=== PATIENT | male | born 1935 | race Caucasian/White ===

== ENCOUNTER → 2016-04-22 | Outpatient (CLI) | payer OTHER ==
[~2016-04-22] MED LIST: AMOX875T PO; ASPCH81; ASPI-435 PO; ATOR10TA88 PO; LISI-461 PO; TRAM-10 PO
[2016-04-22 12:56] LABS: BASO % 0.3 %; BASO ABS # 0.02 K/uL (0-0.2); COMPLETE YES; EOS % 1.4 %; HEMATOCRIT 44.5 % (42-52); IG% 0.3 %; LYMPH % 35.7 %; LYMPH ABS # 2.31 K/uL (1.2-3.4); MEAN CELL VOLUME 88.3 fL (80-100); MEAN CORPUSCULAR HEMOGLOBIN 30.2 pg (25-34); MEAN CORPUSCULAR HGB CONC 34.2 g/dl (32-36); MEAN PLATELET VOLUME 10.1 fL (7.4-10.4); MONO % 9.1 %; NEUT % 53.2 %; PLATELET COUNT 198 K/uL (130-400); RED BLOOD COUNT 5.04 M/uL (4.7-6.1); WHITE BLOOD COUNT 6.47 K/uL (4.8-10.8)
[2016-04-22 13:03] LABS: ALT/SGPT 24 U/L (12-78); BLOOD UREA NITROGEN 18 mg/dl (7-18); BUN/CREATININE RATIO 16.5 (10-20); CALCIUM 8.8 mg/dl (8.5-10.1); CARBON DIOXIDE 25 mmol/L (21-32); CHLORIDE 102 mmol/L (98-107); CHOLESTEROL 113 mg/dl (0-200); GLUCOSE 100 mg/dl (70-99); POTASSIUM 4.7 mmol/L (3.5-5.1); SODIUM 137 mmol/L (136-145)
[2016-04-22 13:06] LABS: ALB/GLOB RATIO 1.5 (0.9-2); ALKALINE PHOSPHATASE 109 U/L (45-117); AST/SGOT 18 U/L (15-37); CHOLESTEROL/HDL RATIO 2.3; HDL CHOLESTEROL 49 mg/dl; LDL CHOLESTEROL CALCULATED 45 mg/dl; TRIGLYCERIDES 96 mg/dl (0-150); VERY LOW DENSITY LIPOPROT CALC 19 mg/dl
[2016-04-22 13:17] LABS: ESTIMATED AVERAGE GLUCOSE 111 mg/dl; HA1C FLAG Normal (Normal)
== END | disposition home or self-care (01) ==
LOC: C.LABBFT 07:47
PROVIDERS: ATTEND Internal Medicine
DX: R73.09 Other abnormal glucose (principal)

== ENCOUNTER → 2016-05-04 | Outpatient (CLI) | payer OTHER ==
[~2016-05-04] MED LIST changes: +OPTIRAY 320 IV PRN; -TRAM-10 PO
--- NOTE | 2016-05-04 12:56 | DIAGNOSTIC IMAGING REPORT ---
ULTRASOUND OF THE THYROID GLAND CLINICAL HISTORY: Thyroid nodules. COMPARISON STUDY: Thyroid ultrasound dated 08/23/2012. TECHNIQUE: Real-time, grayscale, and color flow sonography of the thyroid gland is performed utilizing a high-frequency linear transducer. Images are reviewed in the transverse and longitudinal planes. FINDINGS: Right lobe: The right lobe of the thyroid gland is normal in size and homogeneous in echotexture, measuring 5.5 x 2.1 x 1.8 cm. A 4 mm hypoechoic nodule is noted in the upper pole. A 4 mm hypoechoic nodule is also seen in the lower pole. These were seen previously but or not discretely measured. Left lobe: The left lobe of the thyroid gland is top normal in size and homogeneous in echotexture, measuring 6.2 x 2.8 x 2.6 cm. A hypoechoic solid nodule in the lower pole measures 3.2 x 2.0 x 1.8 cm (previously measured 2.9 x 2.1 x 1.7 cm). A hypoechoic solid nodule in the anterior midpole measures 0.7 x 0.9 x 0.7 cm (previously measured 0.9 x 0.7 x 0.9 cm). Isthmus: The thyroid isthmus is normal in appearance and measures 0.4 cm in AP diameter. IMPRESSION: Bilateral thyroid nodules as above. These have not significantly changed in size or appearance from the 08/23/2012 examination. Electronically signed by: José Luis Dyer M.D. 05/04/2016 12:55 PM Dictated Date/Time: 05/04/2016 12:52 PM
--- NOTE | 2016-05-04 13:11 | DIAGNOSTIC IMAGING REPORT ---
CT OF THE CHEST WITH IV CONTRAST CLINICAL HISTORY: R91.1 Pulmonary [id number] COMPARISON STUDY: CT scan of the abdomen pelvis dated 10/29/2015 TECHNIQUE: Following the IV administration of 93 mL of Optiray-320, CT of the thorax was performed from the thoracic inlet to the lung bases. Images are reviewed in the axial, sagittal, and coronal planes. IV contrast was administered without complication. CT DOSE: 487.73 mGy.cm FINDINGS: Thyroid: Is a 14 mm left lobe thyroid nodule. Thoracic aorta: The thoracic aorta is normal in course and caliber, noting standard 3-vessel arch anatomy. No aneurysm or dissection is seen. Pulmonary vasculature: The pulmonary trunk is normal in caliber. There are no central filling defects identified to suggest pulmonary embolus. Note that this examination was not protocoled for the evaluation of pulmonary emboli. HEART: The heart is normal in size. There are coronary artery calcifications present. Lungs and pleural spaces: There is pulmonary emphysema. There is an enlarging irregularly marginated solid 17 mm right upper lobe pulmonary nodule, is suspicious for a carcinoma. There is a low suspicion 4 mm right lower lobe perifissural nodule. This remains unchanged. There is a calcified granuloma within the right lung apex. There is a 5 mm pulmonary nodule within the lingula as visualized in image #[id number]. This remains unchanged Mediastinum: There is no pathologic mediastinal adenopathy by size criteria Sylvia: There is a right superior hilar lymph node the upper limits of normal in diameter. Axilla: Clear. Upper abdomen: There is a stable 14 mm left adrenal nodule, likely representing an adenoma. There is cholelithiasis. There is a left renal cyst. Skeletal structures: There are no lytic or blastic osseous lesions. IMPRESSION: 1. Enlarging solid 17 mm right upper lobe pulmonary nodule. This should be presumed to represent a bronchogenic carcinoma unless proven otherwise. Pulmonary consultation is recommended 2. No evidence of pathologic adenopathy by size criteria Electronically signed by: Massimo Powell M.D. 05/04/2016 1:10 PM Dictated Date/Time: 05/04/2016 1:01 PM
== END | disposition home or self-care (01) ==
LOC: C.ULTR 12:00
PROVIDERS: ATTEND Internal Medicine
DX: R91.1 Solitary pulmonary nodule (principal); E04.1 Nontoxic single thyroid nodule

== ENCOUNTER → 2016-05-29 | Outpatient (CLI) | payer OTHER ==
[~2016-05-29] MED LIST changes: -OPTIRAY 320 IV PRN
[2016-05-29 16:42] LABS: ARTERIAL BLOOD GAS BASE EXCESS 1.5 mEq/L (-9-1.8); ARTERIAL BLOOD GAS HCO3 25 mmol/L (19-24); ARTERIAL BLOOD GAS PO2 79 mm/Hg (80-95); ARTERIAL BLOOD GAS pH 7.45 (7.35-7.45)
[2016-05-29 16:43] LABS: ALLEN TEST POS (POS); O2 ADMINISTRATION ROOM AIR
== END | disposition home or self-care (01) ==
LOC: C.LAB 16:10
PROVIDERS: ATTEND Internal Medicine Pulmonary Disease
DX: R91.1 Solitary pulmonary nodule (principal)

== ENCOUNTER → 2016-06-08 | Outpatient (CLI) | payer OTHER ==
[~2016-06-08] MED LIST changes: +ATOR10TA82 PO; -ATOR10TA88 PO
--- NOTE | 2016-06-08 10:40 | DIAGNOSTIC IMAGING REPORT ---
PET/CT HISTORY: Lung nodule PULM NODULE TECHNIQUE: PET/CT was performed from the base of the skull through the pelvis following the intravenous administration of 15.4 mCi of F18-FDG. Non-contrast CT imaging was performed over the same range without breath-hold for attenuation correction of PET images and anatomic correlation, but not for primary interpretation as it is not of standard diagnostic quality. CT DOSE: 599.33 mGycm COMPARISON: CT chest 05/04/2016 FINDINGS: HEAD AND NECK: There is a mild increase in activity without anatomic correlate right focal cord with an SUV of 4.8. This may be secondary in part due to patient phonating during the exam. CHEST: 17 mm nodule right upper lobe having considerable increase in SUV to approximately 11. Neoplasm is the diagnosis of exclusion read Unremarkable physiologic activity within the myocardium. No additional metabolically active nodules are identified. The 4 mm nodule within the right lower lobe is unchanged. ABDOMEN/PELVIS: Below the diaphragm, tracer is distributed physiologically in the gastrointestinal and genitourinary tracts. There is no significant lymphadenopathy and no FDG-avid disease. MUSCULOSKELETAL: There is no FDG-avid or destructive bone lesion. IMPRESSION: 1. 17 mm nodule right upper lung showing a significant increase in metabolic activity. 2. A neoplastic nodule is the diagnosis of exclusion. 3. This study is otherwise negative Electronically signed by: John Marion M.D. 06/08/2016 10:38 AM Dictated Date/Time: 06/08/2016 10:31 AM
== END | disposition home or self-care (01) ==
LOC: C.PET 07:30
PROVIDERS: ATTEND Internal Medicine Pulmonary Disease
DX: R91.1 Solitary pulmonary nodule (principal)

== ENCOUNTER 2016-07-14 06:11 | Inpatient (IN) | payer OTHER ==
--- NOTE | 2016-07-02 09:41 | PAT Medication Instructions ---
Service Date Jul 02, 2016. Current Home Medication List Aspirin (Aspirin 81), 81 MG PO QAM Atorvastatin (Lipitor), 10 MG PO HS Lisinopril (Zestril), 10 MG PO QAM Medication Instructions For Your Scheduled Surgery - Hold the following medications the morning of surgery: Lisinopril (Zestril), 10 MG PO QAM - Take the following medications the morning of surgery with a sip of water OTHERWISE NOTHING TO EAT OR DRINK AFTER MIDNIGHT: Aspirin (Aspirin 81), 81 MG PO QAM - Take the following medications as scheduled the night before surgery: Atorvastatin (Lipitor), 10 MG PO HS If you have any questions please call us at [phone] or [phone] or [phone]
[2016-07-02 10:36] LABS: BASO % 0.2 %; BASO ABS # 0.01 K/uL (0-0.2); COMPLETE YES; EOS % 0.9 %; HEMATOCRIT 46.2 % (42-52); IG% 0.2 %; LYMPH % 27.9 %; LYMPH ABS # 1.58 K/uL (1.2-3.4); MEAN CELL VOLUME 90.9 fL (80-100); MEAN CORPUSCULAR HEMOGLOBIN 30.5 pg (25-34); MEAN CORPUSCULAR HGB CONC 33.5 g/dl (32-36); MEAN PLATELET VOLUME 9.7 fL (7.4-10.4); MONO % 8.1 %; NEUT % 62.7 %; PLATELET COUNT 169 K/uL (130-400); RED BLOOD COUNT 5.08 M/uL (4.7-6.1); WHITE BLOOD COUNT 5.67 K/uL (4.8-10.8)
[2016-07-02 10:56] LABS: POTASSIUM 5.2 mmol/L (3.5-5.1)
[2016-07-02 11:00] LABS: CALCIUM 9.6 mg/dl (8.5-10.1)
[~2016-07-14] VITALS: Ht 177.8 cm; Wt 99.5 kg
[2016-07-14] VITALS (14 sets, daily range): BP systolic 90–135; BP diastolic 47–82; PULSE 79–109; TEMP 36.4–36.5; O2SAT 91–98; Ht 177.8 cm; Wt 99.5 kg
[~2016-07-14 06:11] MED LIST changes: -AMOX875T PO; -ASPCH81; +LACTATED RINGER'S 1000ML 1,000 ML IV SCH
[2016-07-14] MEDS ORDERED: EpHEDrine SULFATE INJ 50 MG/ML AMP IV PRN (06:45)
[2016-07-14] MEDS ORDERED: ATROPINE SULFATE 0.1 MG/ML 5ML SYR IV PRN (06:45)
[2016-07-14] MEDS ORDERED: ONDANSETRON INJ 2 MG/ML 2 ML VIAL IV PRN ×2 (06:45→12:30)
[2016-07-14] MEDS ORDERED: FENTANYL CITRATE INJ 50 MCG/1 ML 2 ML VIAL IV PRN (06:45)
[2016-07-14] MEDS ORDERED: FENTANYL CITRATE INJ 50 MCG/1 ML 2 ML VIAL ONE ×3 (07:08→11:39)
[2016-07-14] MEDS ORDERED: BUPIVACAINE LIPOSOME 1/3% 266 MG/20 ML VIAL INFIL ONE (07:14)
[2016-07-14] MEDS ORDERED: SODIUM CHLORIDE 0.9% PF 50 ML VIAL ONE (07:14)
--- NOTE | 2016-07-14 08:13 | History & Physical Bridge Note ---
H&P Re-Evaluation Bridge Note: I have examined the patient, reviewed the History & Physical and in the interval since the performance of the History & Physical I have noted the following changes of clinical significance: No changes noted
[2016-07-14] MEDS ORDERED: LIDOCAINE HCL 2% 2 ML VIAL (20MG/ML) ONE (09:06)
[2016-07-14] MEDS ORDERED: ROCURONIUM BROMIDE 10 MG/ML 5 ML VIAL ONE ×2 (09:06→10:32)
[2016-07-14] MEDS ORDERED: DEXAMETHASONE SOD INJ 4 MG/ML VIAL ONE (09:06)
[2016-07-14] MEDS ORDERED: ONDANSETRON INJ 2 MG/ML 2 ML VIAL ONE ×2 (09:06→12:03)
[2016-07-14] MEDS ORDERED: PROPOFOL IV EMULSION 10 MG/ML 20 ML VIAL IV ONE (09:06)
[2016-07-14] MEDS ORDERED: NEOSTIGMINE METHYLSULFATE 5 MG/5 ML SYR ONE ×2 (10:32→12:03)
[2016-07-14] MEDS ORDERED: GLYCOPYRROLATE INJ 0.2 MG/ML VIAL ONE (12:03)
[2016-07-14] MEDS ORDERED: MoRPHine SULFATE 2 MG/ML CARP IV PRN (12:30)
[2016-07-14] MEDS ORDERED: OXYCODONE HCL IR 5 MG TAB (IMMEDIATE RELEASE) PO PRN (12:30)
--- NOTE | 2016-07-14 13:15 | DIAGNOSTIC IMAGING REPORT ---
CHEST ONE VIEW PORTABLE CLINICAL HISTORY: RUL postoperative evaluation COMPARISON STUDY: No previous studies for comparison. FINDINGS: Postoperative change right hemithorax consistent with a partial right upper lobectomy. Right-sided chest tube in good position. No evidence for postprocedure pneumothorax. Extensive emphysema overlying the lateral hemithoracic wall the right components of which are postoperative. IMPRESSION: No pneumothorax status post right-sided thoracotomy. Right-sided chest tube in good position. Electronically signed by: John Marion M.D. 07/14/2016 1:14 PM Dictated Date/Time: 07/14/2016 1:12 PM
--- NOTE | 2016-07-14 13:31 | Anesthesiology Progress Note ---
Anesthesia Post Op Note Date & Time July 14, 2016 at 13:31 Vital Signs Pain Intensity: 0 Vital Signs Past 12 Hours Date Time Temp Pulse Resp B/P Pulse Ox O2 Delivery O2 Flow Rate FiO2 07/14/16 13:18 86 21 07/14/16 13:18 87 21 99 07/14/16 13:18 87 21 99 07/14/16 13:18 86 21 07/14/16 13:15 143/82 07/14/16 13:15 143/82 07/14/16 13:13 82 15 07/14/16 13:13 86 15 94 07/14/16 13:13 82 15 07/14/16 13:13 86 15 94 07/14/16 13:05 84 20 138/69 98 Mask 10 07/14/16 12:55 79 15 130/88 98 Mask 10 07/14/16 12:45 74 19 124/55 92 Mask 10 07/14/16 12:38 36.0 67 16 119/67 97 Mask 10 07/14/16 06:42 36.4 84 18 135/82 98 Room Air Notes Mental Status: alert / awake / arousable, participated in evaluation Pt Amnestic to Procedure: Yes Nausea / Vomiting: adequately controlled Pain: adequately controlled Airway Patency, RR, SpO2: stable & adequate BP & HR: stable & adequate Hydration State: stable & adequate Anesthetic Complications: no major complications apparent
[2016-07-14] MEDS: CEFAZOLIN IV 2,000 MG in DEXTROSE 5% 50ML 100 ML IV SCH ×2 (15:29→21:13)
[2016-07-14] MEDS: D5W AND 1/2NSS 1,000 ML IV SCH (15:29)
[2016-07-14] MEDS: KETOROLAC TROMETHAMINE 15 MG/ML VIAL IV. SCH ×2 (15:30→23:04)
[2016-07-14] MEDS: METOCLOPRAMIDE HCL INJ 5 MG/ML 2 ML VIAL IV. SCH ×2 (15:30→21:14)
[2016-07-14] MEDS: ACETAMINOPHEN IV 1,000 MG in EMPTY BAG 0 ML IV SCH ×2 (15:30→23:13)
[2016-07-14] MEDS ORDERED: NURSING VERBAL MED ORDER ONE (16:45)
[2016-07-14] MEDS: MAGNESIUM SULFATE 1GM / D5W 1 GM in PREMIXED IN D5W 100 ML IV SCH ×2 (17:32→18:30)
[2016-07-14] MEDS: DOCUSATE SODIUM 100 MG CAP PO SCH (21:12)
[2016-07-14] MEDS: ATORVASTATIN 10 MG TAB PO SCH (21:12)
--- NOTE | 2016-07-14 21:39 | Critical Care Consultation ---
Critical Care Consultation Date of Consultation: July 14, 2016. Attending Physician: Karl Arevalo MD Reason for Consultation: Post Op Care for Right Upper Lobectomy History of Present Illness Mike Espino is an 81-year-old male who presented for elective right wedge resection of lung mass converted to right upper lobectomy with mediastinal lymphadenectomy secondary to a known pulmonary nodule by Dr. Arevalo. Patient was known to smoke a pack of cigarettes a day for about 25 years but quit approximately 47 years ago. He does not complain of dyspnea on exertion. At this point it was believed that the patient was asymptomatic from this mass. The mass had been evaluated by Dr. chavez. Recently it had measured 9 mm x 17 mm and was hypermetabolic. Patient was extubated in the OR. A chest tube to the right thorax is in place with a noted air leak. Frozen sections demonstrated adenocarcinoma. Patient underwent Exparel Block and denies any pain at the site of incision or elsewhere currently. Patient denies fever/chills, dyspnea/shortness of breath, cough. He denies chest pain or awareness of tachyarrhythmias. He states he has had no issue with his diet; denies abdominal pain, nausea, vomiting. He has no change in his normal bowel habits and no urinary symptoms. He denies numbness and tingling of the extremities. 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 Thyroid disorder Thyroid nodule Pulmonary embolism Umbilical hernia Surgical history: History of colonoscopy Hemorrhoidectomy Right upper lobectomy Family History Cancer Diabetes mellitus Heart disease Hypertension Noncontributory Social History Smoking Status: Former Smoker Smokeless Tobacco Use: No Alcohol Use: none Drug Use: none Marital Status: Housing Status: lives with family Occupation Status: retired Allergies Coded Allergies: No Known Allergies (Verified , 07/14/16) Home Medications Scheduled Aspirin (Aspirin 81), 81 MG PO QAM Atorvastatin (Lipitor), 10 MG PO HS Lisinopril (Zestril), 10 MG PO QAM Current Inpatient Medications Current Inpatient Medications Medications (Trade) Dose Ordered Sig/[place] Route Start Time Stop Time Status Last Admin Dose Admin Lactated Ringer's (Lr 1000ml) 1,000 ml @ 15 mls/hr Q24H IV 07/14/16 06:00 07/15/16 05:59 Aspirin (Ecotrin Tab) 81 mg QAM PO 07/15/16 09:00 08/14/16 08:59 Atorvastatin Calcium (Lipitor Tab) 10 mg HS PO 07/14/16 21:00 08/13/16 20:59 07/14/16 21:12 10 MG Lisinopril 10 mg 10 mg QAM PO 07/15/16 09:00 08/14/16 08:59 Acetaminophen/ Empty Bag (Ofirmev Iv/ Empty Iv Bag 100ml) 100 ml @ 400 mls/hr Q8H IV 07/14/16 16:00 08/13/16 15:59 07/14/16 15:30 400 MLS/HR Oxycodone HCl (Roxicodone Immediate Rel Tab) 5 mg Q6H PRN PO 07/14/16 12:30 07/28/16 12:29 Enoxaparin Sodium 40 mg 40 mg DAILY SQ 07/15/16 09:00 08/14/16 08:59 Dextrose/Sodium Chloride (D5W And 1/2nss) 1,000 ml @ 100 mls/hr Q10H IV 07/14/16 12:21 08/13/16 12:20 07/14/16 15:29 100 MLS/HR Ondansetron HCl (Zofran Inj) 4 mg Q4H PRN IV 07/14/16 12:30 08/13/16 12:29 Docusate Sodium 100 mg 100 mg BID PO 07/14/16 21:00 08/13/16 20:59 07/14/16 21:12 100 MG Cefazolin Sodium/ Dextrose (Ancef Iv/D5 50ml) 110 ml @ 100 mls/hr Q8H IV 07/14/16 14:00 07/14/16 23:05 07/14/16 21:13 100 MLS/HR Ketorolac Tromethamine (Toradol Inj) 15 mg Q8H IV. 07/14/16 15:00 07/16/16 07:01 07/14/16 15:30 15 MG Metoclopramide HCl (Reglan Inj) 10 mg Q8 IV. 07/14/16 14:00 07/15/16 13:59 07/14/16 21:14 10 MG Morphine Sulfate (MoRPHine SULFATE INJ) 2 mg Q1H PRN IV 07/14/16 12:30 07/28/16 12:29 Review of Systems 12 systems reviewed and negative other than previously mentioned in the HPI. Physical Exam Date Time Temp Pulse Resp B/P Pulse Ox O2 Delivery O2 Flow Rate FiO2 07/14/16 20:00 36.5 88 20 95/58 94 Room Air 99/47 07/14/16 20:00 94 Room Air 07/14/16 19:01 95 18 105/59 95 07/14/16 19:00 90 19 95 07/14/16 18:00 99 21 91/61 91 Room Air 108/50 07/14/16 17:00 109 21 96/64 93 Room Air 105/51 07/14/16 16:00 Nasal Cannula 2.0 07/14/16 16:00 101 23 122/71 94 Nasal Cannula 2.0 127/61 07/14/16 15:00 101 20 128/81 96 Nasal Cannula 2.0 132/64 07/14/16 14:06 97 25 111/73 95 Nasal Cannula 2.0 07/14/16 14:00 36.4 88 24 07/14/16 13:50 125/68 07/14/16 13:49 95 22 96 07/14/16 13:49 95 22 07/14/16 13:45 125/73 07/14/16 13:44 88 18 95 07/14/16 13:44 88 18 07/14/16 13:40 125/69 07/14/16 13:39 88 16 07/14/16 13:39 86 16 97 07/14/16 13:35 131/79 07/14/16 13:34 91 18 07/14/16 13:34 90 18 96 07/14/16 13:31 132/70 07/14/16 13:29 91 28 07/14/16 13:29 93 28 97 07/14/16 13:26 36.5 93 20 131/79 99 Nasal Cannula 2 07/14/16 13:25 140/79 07/14/16 13:24 88 19 07/14/16 13:24 88 19 100 07/14/16 13:21 124/74 07/14/16 13:19 85 19 100 07/14/16 13:19 85 19 07/14/16 13:18 86 21 07/14/16 13:18 87 21 99 07/14/16 13:18 87 21 99 07/14/16 13:18 86 21 07/14/16 13:15 143/82 07/14/16 13:15 143/82 07/14/16 13:13 82 15 07/14/16 13:13 86 15 94 07/14/16 13:13 82 15 07/14/16 13:13 86 15 94 07/14/16 13:05 84 20 138/69 98 Mask 10 07/14/16 12:55 79 15 130/88 98 Mask 10 07/14/16 12:45 74 19 124/55 92 Mask 10 07/14/16 12:38 36.0 67 16 119/67 97 Mask 10 07/14/16 06:42 36.4 84 18 135/82 98 Room Air Vital Signs - as noted Laboratory Data - as noted Physical Exam: General - NAD Eyes - PERRL, EOMI No icterus, gaze conjugate ENT - Mucosa moist, upper dentures in place, no lesions or candidiasis Neck - Supple, trachea midline, no masses or lymphadenopathy, no JVD or bruits Lungs - No paradoxical chest wall movement, coarse to auscultation bilaterally, no wheezes, rales, or rhonchi, no subcutaneous emphysema noted, chest tube in place Heart - Reg rate and rhythm, No murmur, rubs, clicks, or gallops appreciated Abdomen - BS present, no bruits noted, tympanic to percussion, soft, nontender, nondistended, no organomegaly Extremities - No edema, pedal pulses intact Neuro - A&OX4 Strength extremities equal and appropriate bilaterally Reflexes: normal and equal CN:PERRL, EOMI, no facial asymmetry, uvula/tongue midline Laboratory Results Last 24 Hours Test 07/14/16 06:34 07/14/16 15:39 Bedside Glucose 98 mg/dl 152 mg/dl Diagnostic Results CHEST ONE VIEW PORTABLE CLINICAL HISTORY: RUL postoperative evaluation COMPARISON STUDY: No previous studies for comparison. FINDINGS: Postoperative change right hemithorax consistent with a partial right upper lobectomy. Right-sided chest tube in good position. No evidence for postprocedure pneumothorax. Extensive emphysema overlying the lateral hemithoracic wall the right components of which are postoperative. IMPRESSION: No pneumothorax status post right-sided thoracotomy. Right-sided chest tube in good position. Electronically signed by: John Marion M.D. 07/14/2016 1:14 PM Dictated Date/Time: 07/14/2016 1:12 PM Assessment & Plan (1) Lung cancer (2) Hypercholesteremia (3) Hypertension Pulmonary: * Postop day # 0 right upper lobectomy secondary to adenocarcinoma with mediastinal lymphadenectomy * Pain well controlled * Patient saturating adequately on room air * Provide supplemental oxygen as needed * Monitor on telemetry * Postop management/ Chest Tube per Dr. Arevalo * Repeat chest x-ray Cardiology: * Monitor closely for arrhythmia secondary to thoracic surgery * Monitor on telemetry * EKG as needed with chest pain * Continue home meds for hypertension and hypercholesterolemia Neuro: * No focal neurological signs * Pain well controlled * Monitor for changes / Electrolytes: * Potassium slightly elevated at 5.2; continue to monitor * Remaining PRP within normal limits * Patient voiding, no Proctor in place * Monitor I's and O's * Monitor daily PRP GI: * Diet in place * No indication for GI prophylaxis Heme: * Monitor daily CBC * Currently within normal limits ID: * No current sign of infection * Monitor fever curve and white blood cell count * Patient at risk for postoperative pneumonia * Encourage continued use of incentive spirometer Access: [address] CCT: 0 minutes; Level 3 inpatient Consult billing; Not including any billable procedures. Thank you for including us in the care of this patient. Please review Dr. Chase Joshi's addendum for further recommendations. I have personally evaluated and examined this patient. I agree with assessment and plan of Krystin Tomas PA-C. Patient extubated in the operating room, during my evaluation U Zoe eat dinner and was without complaint. He has a air leak with coughing. Discussed with thoracic surgery team
[2016-07-15] VITALS (11 sets, daily range): BP systolic 84–114; BP diastolic 40–65; PULSE 59–83; TEMP 36.5–37.1; O2SAT 94–98
--- NOTE | 2016-07-15 00:10 | OPERATIVE REPORT ---
DATE OF OPERATION: 07/14/2016 PREOPERATIVE DIAGNOSIS: Hypermetabolic mass, right upper lobe. POSTOPERATIVE DIAGNOSIS: Adenocarcinoma, right upper lobe. PROCEDURE: 1. Right thoracoscopy with wedge resection right upper lobe mass. 2. Thoracoscopic right upper lobectomy. 3. Mediastinal lymphadenectomy. SURGEON: Dr. Arevalo. CHAINSTITCH SEWING MACHINE OPERATOR: TAVO Bell. ANESTHESIA: General anesthesia with endotracheal intubation with a double-lumen tube. SPECIFICS OF PROCEDURE: Mr. Espino is a remarkably preserved 81-year-old male who has had a mass growing in his right upper lobe. It is hypermetabolic. There is no evidence of extrathoracic spread. I had a long talk with the patient and his family. On 07/14/2016, the patient was brought to the operating room and underwent an uncomplicated thoracoscopic wedge resection. I did have to take down some adhesions. I did a wedge resection, and while waiting for the frozen section, I did an Exparel block and then dissected out the posterior hilum. The frozen section came back as consistent with an adenocarcinoma. There was some necrosis in the mid portion of this, I sent this off for culture, and there were no organisms seen on the Gram stain. I then performed a thoracoscopic right upper lobectomy, did a mediastinal lymphadenectomy. He tolerated it well and was extubated in the room with a small air leak. Blood loss was negligible. PROCEDURE IN DETAIL: The patient was brought to operating room and laid in supine position. Appropriate monitoring lines and tubes had been placed. After appropriate timeout had been called and antibiotics given, the patient was intubated with a double-lumen tube. The patient was then placed in the left lateral decubitus position, his right chest was prepped and draped in the usual sterile fashion. One-lung ventilation then ensued. A 5 mm port was placed and carbon dioxide was insufflated. The patient had adhesions on the lateral chest wall and another port was placed more medial at about the 7th interspace and at about the 4th interspace another port was placed. I then used the Harmonic scalpel to take down these adhesions. I also the adhesions between the upper lobe and the middle lobe and lower lobe. I then was able to palpate this mass. This mass was grasped and I did a generous wedge resection. This was delivered off the field with an Endobag. I opened this at the back table and there was liquification in the center which I cultured. This was then sent for frozen section. While waiting for the frozen section, 266 mg of liposomal bupicaine mixed in 60 mL of normal saline was injected from the 2nd to the 11th rib in an intercostal block under thoracoscopic guidance. I then retracted the lung anteriorly and freed up the posterior pleura up to the right mainstem bronchus. A level 7 node was then dissected away. I then brought this dissection down and dissected out the right upper lobe bronchus. Frozen section came back as being positive for an adenocarcinoma, so we proceeded with resection. I completed for the posterior aspect of the oblique fissure with an Endo-ASHISH stapler. I was then able to identify the posterior ascending artery and fired Endo-ASHISH stapler across this. With this, I was able to visualize the artery nicely and I dissected around the right upper lobe bronchus and Endo-ASHISH stapler was fired. This allowed me to retract this up until I could see the truncus arteriosus and another Endo-ASHISH stapler was fired. I then retracted the lung posteriorly along the anterior mediastinal pleura and dissected out the upper lobe vein and it from the middle lobe vein and fired an Endo-ASHISH stapler across this. I then completed the fissure anteriorly. A large Endobag was used to deliver this off the field. I asked for frozen section to be done on the margins. While waiting for this, I dissected up the inferior pulmonary ligament. I really did not see a level 8 or level 9 node. I did dissect out several #10 nodes both posterior and anteriorly as well as 11 and 12 nodes. I then dissected out the pleura above the azygos vein and dissected out a #2 and a #4 node on the right. There was very little in the way of bleeding. We did see a leak after we closed the chest and applied the suction. It was a larger leak than I would like and I went in and this was an area we were taking down adhesions of the lower lobe to the chest wall and required an Endo-ASHISH stapler across this. This controlled much of the leak, although he was still having a small one. A 24-Israeli chest tube was then directed toward the apex of the anteroinferior thoracoscopy port and sutured in place with heavy silk suture. The muscle layers were closed with 0 Vicryl. 4-0 Monocryl was used in running subcuticular fashion to approximate the wound edges. He tolerated it well and was extubated in the room. I attest to the content of the Intraoperative Record and any orders documented therein. Any exceptions are noted below. ZOHAIB
[2016-07-15] MEDS: D5W AND 1/2NSS 1,000 ML IV SCH ×2 (00:37→07:39)
[2016-07-15 06:00] LABS: BASO % 0.1 %; BASO ABS # 0.01 K/uL (0-0.2); COMPLETE YES; EOS % 0.6 %; HEMATOCRIT 31.5 % (42-52); IG% 0.3 %; LYMPH % 17.7 %; LYMPH ABS # 1.28 K/uL (1.2-3.4); MEAN CELL VOLUME 90.5 fL (80-100); MEAN CORPUSCULAR HGB CONC 34.3 g/dl (32-36); MEAN PLATELET VOLUME 9.5 fL (7.4-10.4); NEUT % 72.3 %; PLATELET COUNT 142 K/uL (130-400); RED BLOOD COUNT 3.48 M/uL (4.7-6.1); WHITE BLOOD COUNT 7.24 K/uL (4.8-10.8)
[2016-07-15] MEDS: KETOROLAC TROMETHAMINE 15 MG/ML VIAL IV. SCH ×3 (06:07→22:35)
[2016-07-15] MEDS: METOCLOPRAMIDE HCL INJ 5 MG/ML 2 ML VIAL IV. SCH (06:08)
[2016-07-15 06:10] LABS: INR 1.1 (0.9-1.1)
[2016-07-15 06:40] LABS: BUN/CREATININE RATIO 20.8 (10-20); CALCIUM 7.3 mg/dl (8.5-10.1); CREATININE 1.1 mg/dl (0.60-1.40); MAGNESIUM 2.4 mg/dl (1.8-2.4); PHOSPHORUS 2.3 mg/dl (2.5-4.9); POTASSIUM 4.1 mmol/L (3.5-5.1)
[2016-07-15] MEDS: ACETAMINOPHEN IV 1,000 MG in EMPTY BAG 0 ML IV SCH (07:39)
[2016-07-15] MEDS: LISINOPRIL 10 MG TAB PO SCH (07:40)
[2016-07-15] MEDS: ENOXAPARIN 40 MG/0.4 ML SYR SQ SCH (07:40)
[2016-07-15] MEDS: DOCUSATE SODIUM 100 MG CAP PO SCH ×2 (07:40→20:46)
[2016-07-15] MEDS: ASPIRIN 81 MG ECTAB PO SCH (07:40)
--- NOTE | 2016-07-15 08:05 | Anesthesiology Progress Note ---
Anesthesia Post Op Note Date & Time July 15, 2016 at 08:05 Vital Signs Pain Intensity: 0.0 Vital Signs Past 12 Hours Date Time Temp Pulse Resp B/P Pulse Ox O2 Delivery O2 Flow Rate FiO2 07/15/16 08:00 37.0 71 20 91/50 96 Room Air 101/56 07/15/16 06:00 62 21 97/57 96 Room Air 07/15/16 04:00 94 Room Air 07/15/16 04:00 36.8 59 19 108/57 95 Room Air 92/58 07/15/16 02:00 67 18 103/58 95 Room Air 91/43 07/15/16 01:00 70 19 88/58 94 84/40 07/15/16 00:01 36.8 83 20 103/61 94 Room Air 107/57 07/14/16 23:59 94 Room Air 07/14/16 23:06 79 19 97/58 95 Nasal Cannula 2.0 94/53 07/14/16 22:03 86 21 103/63 95 Nasal Cannula 2.0 101/50 07/14/16 21:00 87 20 90/56 92 93/56 07/14/16 21:00 87 20 90/56 92 93/56 Notes Mental Status: alert / awake / arousable, participated in evaluation Pt Amnestic to Procedure: Yes Nausea / Vomiting: adequately controlled Pain: adequately controlled Airway Patency, RR, SpO2: stable & adequate BP & HR: stable & adequate Hydration State: stable & adequate Anesthetic Complications: no major complications apparent
--- NOTE | 2016-07-15 08:21 | DIAGNOSTIC IMAGING REPORT ---
CHEST ONE VIEW PORTABLE HISTORY: Right upper lobectomy. Postop. COMPARISON: Chest 07/14/2016. FINDINGS: There is now medial displacement of the right-sided chest tube. There is been interval development of a moderate to large right pneumothorax demonstrating an apical pleural gap of 4 cm. Hazy appearance the right lung base has progressed and may represent atelectasis. There are suture material within the right hilum. There are low lung volumes. Right-sided chest wall subcutaneous emphysema is again noted. No mediastinal shift. The heart is stable in size. Old, healed left-sided rib fractures. IMPRESSION: Medial displacement of the right-sided chest tube which appears to be due to interval development of a moderate to large right pneumothorax. Electronically signed by: Michael Park M.D. 07/15/2016 8:20 AM Dictated Date/Time: 07/15/2016 8:12 AM
--- NOTE | 2016-07-15 12:56 | SURGERY PROGRESS NOTE ---
DATE: 07/15/2016 Mr. Espino is an 81-year-old who underwent a thoracoscopic right upper lobectomy mediastinal lymphadenectomy yesterday for a nonsmall cell lung carcinoma. He did very well with this. He does have a small air leak and he has a small pneumothorax on his chest x-ray on [facility] this morning. But, quite frankly he looks very good. He is eating a regular diet. He has very little in the way of pain. He has drained very little from his chest tube. I am not concerned about his x-ray. The air leak is small and should stop. We are going to move him to a regular room as he has had no arrhythmias. We removed all of his monitoring lines and tubes except for his chest tube. We will push him to ambulate. He has done remarkably well for an 81-year-old man. ZOHAIB
[2016-07-15] MEDS: ACETAMINOPHEN 325 MG TAB PO SCH ×2 (14:03→20:46)
[2016-07-15] MEDS: ATORVASTATIN 10 MG TAB PO SCH (20:46)
[2016-07-16] VITALS (7 sets, daily range): BP systolic 102–125; BP diastolic 65–78; PULSE 62–89; TEMP 36.4–37.1; O2SAT 95–98
[2016-07-16] MEDS: ACETAMINOPHEN 325 MG TAB PO SCH ×4 (01:36→19:40)
[2016-07-16] MEDS: KETOROLAC TROMETHAMINE 15 MG/ML VIAL IV. SCH (06:30)
[2016-07-16] MEDS: DOCUSATE SODIUM 100 MG CAP PO SCH ×2 (08:39→20:32)
[2016-07-16] MEDS: ENOXAPARIN 40 MG/0.4 ML SYR SQ SCH (08:39)
[2016-07-16] MEDS: ASPIRIN 81 MG ECTAB PO SCH (08:39)
[2016-07-16] MEDS: LISINOPRIL 10 MG TAB PO SCH (08:40)
--- NOTE | 2016-07-16 13:08 | DIAGNOSTIC IMAGING REPORT ---
CHEST ONE VIEW PORTABLE CLINICAL HISTORY: RUL pain COMPARISON STUDY: 07/15/2016 FINDINGS: Interval decrease in size of right pneumothorax. There is no interval and minimal residual. Subcutaneous emphysematous changes similar area left lung remains clear. IMPRESSION: Improved exam. No significant residual right-sided pneumothorax. Electronically signed by: John Marion M.D. 07/16/2016 1:07 PM Dictated Date/Time: 07/16/2016 1:03 PM
--- NOTE | 2016-07-16 13:40 | SURGERY PROGRESS NOTE ---
DATE: 07/16/2016 DATE: 07/16/2016. SUBJECTIVE: Mr. Espino is an 81-year-old male who underwent a thoracoscopic right upper lobectomy and mediastinal lymphadenectomy 2 days ago and looks very good. He is on room air. He is ambulating in the hallway. He is eating well. His only problem is he does have a small air leak. He has not drained very much fluid from his chest tube, total 160 yesterday, but his air leak is not large, but is concerning enough that we will have to keep his chest tube in for the time being. I explained this very carefully to him. His pathology is not back yet. ASSESSMENT AND PLAN: Postop day #2, status post thorascopic right upper lobectomy and mediastinal lymphadenectomy. The patient looks quite good. We are going to hopefully get this chest tube out when his air leak stops.
[2016-07-16] MEDS: ATORVASTATIN 10 MG TAB PO SCH (20:32)
[2016-07-17] MEDS: ACETAMINOPHEN 325 MG TAB PO SCH ×4 (01:39→20:50)
[2016-07-17 07:02] VITALS: BP 128/92; PULSE 77; TEMP 37; O2SAT 94
[2016-07-17 08:59] VITALS: BP 125/80
[2016-07-17] MEDS: ENOXAPARIN 40 MG/0.4 ML SYR SQ SCH (09:00)
[2016-07-17] MEDS: LISINOPRIL 10 MG TAB PO SCH (09:00)
[2016-07-17] MEDS: ASPIRIN 81 MG ECTAB PO SCH (09:00)
[2016-07-17] MEDS: DOCUSATE SODIUM 100 MG CAP PO SCH ×2 (09:00→20:50)
[2016-07-17 15:33] VITALS: BP 129/79; PULSE 95; TEMP 36.6; O2SAT 99
--- NOTE | 2016-07-17 17:23 | SURGERY PROGRESS NOTE ---
DATE: 07/17/2016 SUBJECTIVE: Mr. Espino was seen today on postoperative day #3, status post thoracoscopic right upper lobectomy. Unfortunately, he continues to have an air leak. He is ambulating in the hallway. He complained of a bit of pain when he was swallowing, which was new for him. He had a few petechiae on the back of his throat. I went ahead and gave him Nystatin swish and swallow. Otherwise, I think he looks great. His vital signs were quite good. His heart rate varies from the 70s to the 90s. Blood pressure is 129/79, his pulse oximetry 99% on room air and his chest x-ray from yesterday looked quite good. His pathology came out today and he has a nonsmall cell lung carcinoma (adeno squamous) and all 10 of his lymph nodes were negative for carcinoma. His tumor is 2.5 cm, so technically he has a T1B lung. carcinoma. At this point, he still has an air leak, so will have to continue his chest tube , but I am quite happy with him. He is ambulating in the hallways, moving his bowels. He feels very good with very little in the way of pain. I will just see him but it is my feeling that he will not require any chemotherapy. ZOHAIB
[2016-07-17] MEDS: ATORVASTATIN 10 MG TAB PO SCH (20:51)
[2016-07-18 00:55] VITALS: BP 127/72; PULSE 82; TEMP 37; O2SAT 96
[2016-07-18] MEDS: ACETAMINOPHEN 325 MG TAB PO SCH ×4 (02:36→20:06)
[2016-07-18 07:33] VITALS: BP 118/77; PULSE 69; TEMP 36.9; O2SAT 95
[2016-07-18] MEDS: LISINOPRIL 10 MG TAB PO SCH (08:25)
[2016-07-18] MEDS: ASPIRIN 81 MG ECTAB PO SCH (08:25)
[2016-07-18] MEDS: ENOXAPARIN 40 MG/0.4 ML SYR SQ SCH (08:25)
[2016-07-18] MEDS: DOCUSATE SODIUM 100 MG CAP PO SCH ×2 (08:25→20:06)
--- NOTE | 2016-07-18 08:28 | DIAGNOSTIC IMAGING REPORT ---
CHEST ONE VIEW PORTABLE HISTORY: s/p lobectomy COMPARISON: Chest 07/16/2016. FINDINGS: Right-sided chest tube remains unchanged in position. As a tiny right pneumothorax is also unchanged. Right chest wall subcutaneous emphysema. No new focal lung consolidations. The heart is stable in size. IMPRESSION: No change in the tiny right pneumothorax. Electronically signed by: Michael Park M.D. 07/18/2016 8:27 AM Dictated Date/Time: 07/18/2016 8:26 AM
--- NOTE | 2016-07-18 11:29 | SURGERY PROGRESS NOTE ---
DATE: 07/18/2016 DATE: 07/18/2016. Mr. Espino was seen again today this morning. He is now postop day #4 status post thoracoscopic right upper lobectomy and mediastinal lymphadenectomy for nonsmall cell lung carcinoma. He looks very good. I thought his x-ray looked good. He is draining very little fluid, but he still has an air leak. I am quite happy with him as this is a stage I lung carcinoma. He only drained 120 mL, so I am going to hook him up to a Heimlich valve and have him ambulate. If he looks good and the x-ray is good in the morning I may send him home with this.
[2016-07-18 15:20] VITALS: BP 112/73; PULSE 81; TEMP 36.7; O2SAT 96
[2016-07-18] MEDS: ATORVASTATIN 10 MG TAB PO SCH (20:06)
[2016-07-18 23:57] VITALS: BP 109/72; PULSE 79; TEMP 37.1; O2SAT 94
[2016-07-19] MEDS: ACETAMINOPHEN 325 MG TAB PO SCH ×2 (01:49→08:19)
[2016-07-19 07:50] VITALS: BP 127/79; PULSE 70; TEMP 36.7; O2SAT 94
--- NOTE | 2016-07-19 08:26 | DIAGNOSTIC IMAGING REPORT ---
CHEST ONE VIEW PORTABLE CLINICAL HISTORY: Lobectomy. COMPARISON STUDY: Chest radiograph July 18, 2016. FINDINGS: A right chest tube remains in place. A small right pneumothorax is noted. This is slightly increased since prior exam. Cardiac size is stable. Extensive subcutaneous gas within the right chest wall and lower neck is noted. IMPRESSION: Small right pneumothorax, slightly increased since prior exam. Right chest tube in place. Electronically signed by: Drew Michelle M.D. 07/19/2016 8:25 AM Dictated Date/Time: 07/19/2016 8:23 AM
--- NOTE | 2016-07-19 08:33 | Discharge Instructions ---
Discharge Instructions Date of Service July 19, 2016. Admission Reason for Admission: Right Lung Mass Discharge Discharge Diagnosis / Problem: Adenosquamous carcinoma right upper lobe Discharge Goals Goal(s): Specific goals (Manage right chest tube - home health will be there tomorrow.) Activity Recommendations Activity Limitations: as noted below Lifting Limitations: gradually increase as tolerated Exercise/Sports Limitations: gradually increase as tolerated May Resume Sexual Activity: when tolerated Shower/Bathe: keep incision dry Driving or Machine Use: Wait until I see you in the office. No flying until I clear you. . Instructions / Follow-Up Instructions / Follow-Up Do not get chest tube site wet. Current Hospital Diet Patient's current hospital diet: Regular Diet Discharge Diet Recommended Diet: Regular Diet Procedures Procedures Performed: Right Video-assisted Thoracoscopy with Right Upper Lobe Wedge Resection; Right Upper Lobectomy with Mediastinal Lymphadenectomy Pending Studies Studies pending at discharge: no Laboratory Results Hemoglobin A1c Test 04/22/16 07:51 Range/Units Estimated Average Glucose 111 mg/dl Hemoglobin A1c 5.5 4.5-5.6 % Lipid Panel Test 04/22/16 07:51 Range/Units Triglycerides Level 96 0-150 mg/dl Cholesterol Level 113 0-200 mg/dl HDL Cholesterol 49 mg/dl Cholesterol/HDL Ratio 2.3 LDL Cholesterol, Calculated 45 mg/dl Medical Emergencies . Who to Call and When: Medical Emergencies: If at any time you feel your situation is an emergency, please call 911 immediately. . Non-Emergent Contact Non-Emergency issues call your: Surgeon Contact Number: [phone] Arevalo with any problems - either at the office or the hospital ) and page him. . "Provider Documentation" section prepared by Karl Arevalo. . VTE Core Measure Inpt VTE Proph given/why not?: Enoxaparin (Lovenox)SQ, SCD's
[2016-07-19] MEDS: ASPIRIN 81 MG ECTAB PO SCH (08:59)
[2016-07-19] MEDS: DOCUSATE SODIUM 100 MG CAP PO SCH (08:59)
[2016-07-19] MEDS: LISINOPRIL 10 MG TAB PO SCH (08:59)
[2016-07-19] MEDS: ENOXAPARIN 40 MG/0.4 ML SYR SQ SCH (09:00)
[2016-07-19 11:23] VITALS: BP 127/79; PULSE 70; TEMP 36.7; O2SAT 94
--- NOTE | 2016-07-19 19:13 | DISCHARGE SUMMARY ---
DISCHARGE DIAGNOSES: 1. 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 2. Hypercholesterolemia. 3. Hypertension. 4. History of herpes zoster. 5. Pulmonary embolism in the past. 6. Umbilical hernia. HOSPITAL COURSE: This is a very nice 81-year-old male who was found to have a hypermetabolic mass in his right upper lobe, which we did not have a diagnosis for. After we worked him up, we felt he was a candidate for resection. On 07/14/2016, patient underwent an uncomplicated right thoracoscopy with wedge resection and frozen section. It turns out this was a nonsmall cell carcinoma. I then performed an uncomplicated thoracoscopic right upper lobectomy with a mediastinal lymph node dissection. We went back in and attempted to control some small areas of air leaking from his lung. The patient did very well with washing in unit overnight because of his age but actually did well and we moved him to the floor the following day. He was ambulating in the hallway. Eating a house diet. The only problem is he had an air leak. He was not draining much fluid. On postop day #4, the patient's chest tube was switched to a Heimlich valve. He still had a small air leak, but he had full expansion of this lung with no fluid in drain, very little through the Heimlich valve, as far as fluid went. His incisions were clean and he had no pain whatsoever. He is moving his bowels. I discharged him on postop day #5. I will see him back in the office in the next 3-4 days with an x-ray and hopefully we can get this chest tube out. He really has no pain and looks quite good. I was quite happy with this pathology.
== END 2016-07-19 13:08 | disposition home health service (06) | DRG 164 ==
LOC: ENRESERVTM → ENRESERVDT → C.ACU 06:11 → UNDOADMIN 08:10 → C.MSICU 08:10 → EDSTATUS 07-15 07:15 → C.MSW 07-15 09:15
PROVIDERS: ADMIT Surgery; ATTEND Surgery
PROC: 0BBC4ZX Excision of Right Upper Lung Lobe, Percutaneous Endoscopic Approach, Diagnostic (ICD-10-PCS; principal; 2016-07-14 08:30)
PROC: 07B74ZX Excision of Thorax Lymphatic, Percutaneous Endoscopic Approach, Diagnostic (ICD-10-PCS; principal; 2016-07-14 08:30)
PROC: 0BBC4ZZ Excision of Right Upper Lung Lobe, Percutaneous Endoscopic Approach (ICD-10-PCS; principal; 2016-07-14 08:30)
DX: C34.11 Malignant neoplasm of upper lobe, right bronchus or lung (principal); J93.82 Other air leak; E78.00 Pure hypercholesterolemia, unspecified; I10 Essential (primary) hypertension; N52.9 Male erectile dysfunction, unspecified; E07.9 Disorder of thyroid, unspecified; K42.9 Umbilical hernia without obstruction or gangrene; B02.9 Zoster without complications; Z79.82 Long term (current) use of aspirin; Z79.899 Other long term (current) drug therapy; Z87.891 Personal history of nicotine dependence; Z86.711 Personal history of pulmonary embolism; Z83.3 Family history of diabetes mellitus; Z80.9 Family history of malignant neoplasm, unspecified; Z82.49 Family history of ischemic heart disease and other diseases of the circulatory system

== ENCOUNTER → 2016-07-23 | Outpatient (CLI) | payer OTHER ==
[~2016-07-23] MED LIST changes: +AMOX875T PO; -LACTATED RINGER'S 1000ML 1,000 ML IV SCH
--- NOTE | 2016-07-23 09:09 | DIAGNOSTIC IMAGING REPORT ---
CHEST 2 VIEWS ROUTINE HISTORY: Pulmonary nodule. COMPARISON: Chest 07/19/2016. FINDINGS: Right-sided chest tube which terminates within the right upper lung zone. This remains unchanged. Small right apical pneumothorax has increased in size. This demonstrates a maximal pleural gap of 2.6 cm. Right chest wall subcutaneous emphysema is again noted. Suture material within the right hilum. The left lung is clear. The heart is normal in size. No pleural effusions. IMPRESSION: Slight increase in size in the small right pneumothorax. Right-sided chest tube is unchanged in position. Electronically signed by: Michael Park M.D. 07/23/2016 9:08 AM Dictated Date/Time: 07/23/2016 9:05 AM
== END | disposition home or self-care (01) ==
LOC: C.RAD 08:40
PROVIDERS: ATTEND Surgery
DX: R91.1 Solitary pulmonary nodule (principal)

== ENCOUNTER → 2016-07-29 | Outpatient (CLI) | payer OTHER ==
--- NOTE | 2016-07-29 13:35 | DIAGNOSTIC IMAGING REPORT ---
TWO VIEW CHEST CLINICAL HISTORY: Follow-up status post right pulmonary resection. FINDINGS: PA and lateral chest radiographs are compared to study dated 07/23/2016 and correlated with chest CT dated 05/04/2016. The heart is mildly enlarged and there is atherosclerotic calcification of the thoracic aorta. Emphysema and chronic interstitial thickening are similar to previous. There is postoperative change and volume loss consistent with a history of right pulmonary resection. Suture material is seen overlying the right hilum. A chest tube is again seen at the right apex. No pneumothorax is seen. There are airspace opacities present the right lung base, likely representing atelectasis. No airspace consolidation is seen typical for pneumonia. The skeletal structures are osteopenic. Degenerative change and scoliosis are noted in the thoracic spine. There are healed left-sided rib fractures. Subcutaneous emphysema is seen along the right chest wall. IMPRESSION: 1. Cardiomegaly and emphysema. 2. There are postoperative changes from right-sided pulmonary resection. 3. A right apical chest tube is unchanged in position. No pneumothorax is seen on today's examination. 4. Airspace opacities at the right lung base likely represent atelectasis. Electronically signed by: José Luis Dyer M.D. 07/29/2016 1:34 PM Dictated Date/Time: 07/29/2016 1:30 PM
== END | disposition home or self-care (01) ==
LOC: C.RAD 12:59
PROVIDERS: ATTEND Physician Assistant
DX: K59.00 Constipation, unspecified (principal); R91.1 Solitary pulmonary nodule; I51.7 Cardiomegaly; J43.9 Emphysema, unspecified; R91.8 Other nonspecific abnormal finding of lung field

== ENCOUNTER 2016-07-31 11:32 | Emergency (ER) | payer OTHER ==
[~2016-07-31] VITALS: Ht 177.8 cm; Wt 93.0 kg
[~2016-07-31 11:32] MED LIST changes: -AMOX875T PO
[2016-07-31 11:35] VITALS: TEMP 36.5; Ht 177.8 cm; Wt 93.0 kg
--- NOTE | 2016-07-31 12:17 | DIAGNOSTIC IMAGING REPORT ---
CHEST ONE VIEW PORTABLE HISTORY: chest tube malfunction COMPARISON: Chest 07/31/2016. FINDINGS: Small right apical pneumothorax has decreased in size. This now demonstrates a maximal pleural gap of 5 mm. Right-sided chest tube terminates in the right lung apex. Small amount of right lower chest wall subcutaneous emphysema. The heart is normal in size. A few linear scarlike density seen within the right lung base. The left lung is clear. No pleural effusions. IMPRESSION: Interval decrease in size in the small right apical pneumothorax. Electronically signed by: Michael Park M.D. 07/31/2016 12:15 PM Dictated Date/Time: 07/31/2016 12:13 PM
--- NOTE | 2016-07-31 12:18 | DIAGNOSTIC IMAGING REPORT ---
CHEST ONE VIEW PORTABLE HISTORY: Broken chest tube. COMPARISON: Chest 07/29/2016. FINDINGS: A right apical chest tube is unchanged in position. Increase in size in the small right apical pneumothorax. This demonstrates a maximal pleural gap of 2 cm. Right chest wall subcutaneous emphysema has improved. No pleural effusions. The heart is normal in size. The left lung is clear. IMPRESSION: Increase in size in the small right pneumothorax. Right-sided chest tube is unchanged in position. Electronically signed by: Michael Park M.D. 07/31/2016 12:17 PM Dictated Date/Time: 07/31/2016 12:16 PM
--- NOTE | 2016-07-31 12:33 | Medical Consult ---
Consultation Note Date of Service July 31, 2016. Consultation Note Consult Dictated #[id number]
[2016-07-31 12:35] VITALS: BP 94/62; PULSE 80; O2SAT 95
--- NOTE | 2016-07-31 14:37 | CONSULTATION REPORT ---
DATE OF CONSULTATION: 07/31/2016 HISTORY OF PRESENT ILLNESS: Mr. Espino is an 81-year-old male, well known to our service. The patient was seen initially by Dr. Arevalo as an outpatient secondary to a right lung mass and on July 14, the patient was admitted to [facility], where he underwent a thorascopic right upper lobectomy. The patient had a persistent air leak following his postoperative course, which was otherwise uneventful. Because of his persistent air leak, the patient was discharged home with a chest tube in place, attached to a Heimlich valve. The patient was doing well with this modality. He was actually seen in the office for postoperative followup on 2 occasions on July 23 and July 29. On the July 23, the patient was noted to have a small apical right pneumothorax and a persistent air leak; however, on July 29, it appeared that the pneumothorax have largely resolved, but he did continue to have persistent air leak and therefore, the Heimlich valve was left in place. The plan was for the patient to follow up with Dr. Arevalo on August 04 for consideration of removal of his chest tube at that time. On July 31, which was today, we did receive a call from visiting nurses, saying that the patient had a malfunction of his Heimlich valve and it appears as though the tube was "sucking air." We were told that the patient was not having any significant chest pain or shortness of breath at that time. However, due to his reported findings, he was instructed to come to the Emergency Department. I did evaluate the patient in the Emergency Department. At the time of my visit, he is resting comfortably in bed. He did not report any significant chest pain and he was not short of breath. He denied any fevers, shakes, or chills. Concerning other symptoms, he did not have any recent falls or head injuries. Again, no chest pain or shortness of breath was reported. He did not have any nausea, vomiting, fevers, shakes, or chills. I did examine the patient's chest tube site , which appeared all clean without signs of infection; however, the patient's chest tube appeared that the end of the patient's chest tube had actually broken off, leaving this open to air. When the patient would take deep breath, it did appear as though he was sucking in air. The patient did have a chest x-ray taken, which showed that the patient did have a small right apical pneumothorax. His chest tube, however, did remain unchanged and in good position. Following this chest x-ray, I did place a new Heimlich valve on the end of the patient's existing chest tube using a "[employer] tree adaptor." So that the Heimlich valve would fit on end of the chest tube. Following this procedure, I did immerse the distal end of the Heimlich valve in a cup of water and as the patient takes several deep breaths and cough, a large amount of air was expelled. I had the patient do this numerous times and at each time, the amount of air that was expelled became less and less to the point where it was almost nonexistent. Following this, a repeat chest x-ray was undertaken and the previously noted right apical pneumothorax had actually decreased in size. Following this procedure, I did redress the patient's chest tube site using an antimicrobial dressing in the form of Acticoat covered with dry sterile dressing and a MediPort tape. All connections to the chest tube and Heimlich valve were noted to be secured. PHYSICAL EXAMINATION: VITAL SIGNS: Reviewed and he was noted to be afebrile with temperature of 36.5. His pulse is 103 and regular. His respiratory rate is 16 and nonlabored, blood pressure is 91/57, and pulse ox is 96% on room air. GENERAL: He was alert and oriented x3, in no distress. CARDIOVASCULAR: Revealed a regular rate and rhythm. LUNGS: Revealed that his breath sounds were bilateral clear to auscultation. There are no rales, rhonchi, wheezing or use of accessory muscles and there is no noted tracheal shift. . As the patient was noted to be stable and feeling well, he was deemed stable for discharge. He was told continue to care for his chest tube and Heimlich valve as he was before and he felt comfortable with this decision. The patient already has an appointment with Dr. Arevalo on August 04, which is this coming Wednesday at 10:15. I did instruct him to get a chest x-ray prior to this appointment. The patient and his family were present at bedside, did express their understanding. He was discharged in stable condition. ZOHAIB
== END 2016-07-31 12:37 | disposition home or self-care (01) ==
LOC: C.EDB 11:33 → C.EDC 12:37
DX: Z45.89 Encounter for adjustment and management of other implanted devices (principal)

== ENCOUNTER 2016-07-31 16:34 | Inpatient (IN) | payer OTHER ==
[~2016-07-31] VITALS: Ht 177.8 cm; Wt 88.9 kg
[2016-07-31] MEDS ORDERED: SODIUM CHLORIDE 0.9% 1000ML 1,000 ML IV ONE (16:58)
[2016-07-31 17:17] LABS: BASO % 0.2 %; BASO ABS # 0.02 K/uL (0-0.2); COMPLETE YES; EOS % 0.6 %; HEMATOCRIT 41.2 % (42-52); IG% 0.5 %; LYMPH ABS # 0.92 K/uL (1.2-3.4); MEAN CELL VOLUME 87.3 fL (80-100); MEAN CORPUSCULAR HEMOGLOBIN 30.5 pg (25-34); MEAN PLATELET VOLUME 8.8 fL (7.4-10.4); MONO % 6.4 %; NEUT % 85.3 %; PLATELET COUNT 280 K/uL (130-400); RED BLOOD COUNT 4.72 M/uL (4.7-6.1); WHITE BLOOD COUNT 13.11 K/uL (4.8-10.8)
[2016-07-31] MEDS ORDERED: PIPERACILLIN/TAZOBACTAM 4.5 GM/100ML D5W IV STA (17:28)
--- NOTE | 2016-07-31 17:30 | EMERGENCY ROOM VISIT NOTE ---
History Report prepared by Lynnette: Samra Mckay Under the Supervision of: Dr. Sigifredo Ortiz D.O. First contact with patient: 16:56 Chief Complaint: NAUSEA Stated Complaint: COLD/NAUSEA,HAD LUNG SURGERY,MAY ASPIRATED VOMIT Nursing Triage Summary: pt was seen here earlier having chills and feels nauseated small amt emesis. pt had lung surgery 3 weeks ago History of Present Illness The patient is an 81 year old male who presents to the Emergency Room with complaints of resolved nausea earlier today. He was in the ED earlier to fix his chest tube. He has had some of his removed which was found to be cancerous. He is not receiving chemo. He took a nap at home after his ED visit. During his nap he was moaning and groaning according to his family member. He woke up and vomited. He had chills and was shaking. He was unable to get warm. His family member states that he felt warm. He has some productive cough, but no hemoptysis. He denies any rash, chest pain, urinary symptoms, pain or swelling in the legs. He denies any tobacco or alcohol use. He has a history of hypertension and high cholesterol. Source of History: patient, family Onset: earlier today Position: other (global) Quality: other (nausea) Timing: resolved Associated Symptoms: + chills, + cough, + fevers, + vomiting, No chest pain , No rash, No urinary symptoms Note: Pt was shaking, unable to get warm. Pt denies hemoptysis, pain or swelling in legs. Review of Systems See HPI for pertinent positives & negatives. A total of 10 systems reviewed and were otherwise negative. Past Medical & Surgical Medical Problems: (1) Hypercholesteremia (2) Hypertension (3) Hypotension (4) Lung cancer Family History Cancer Diabetes mellitus Heart disease Hypertension Social History Smoking Status: Never Smoker Alcohol Use: occasionally Drug Use: none Marital Status: Housing Status: lives with family Occupation Status: retired Current/Historical Medications Scheduled Aspirin (Aspirin 81), 81 MG PO QAM Atorvastatin (Lipitor), 10 MG PO HS Lisinopril (Zestril), 10 MG PO QAM Allergies Coded Allergies: No Known Allergies (Verified , 07/31/16) Physical Exam Vital Signs Date Time Temp Pulse Resp B/P Pulse Ox O2 Delivery O2 Flow Rate FiO2 07/31/16 17:40 122 22 101/68 94 Room Air 07/31/16 17:21 94 Room Air 07/31/16 17:17 131 22 95/62 94 Room Air 07/31/16 17:05 130 07/31/16 16:52 37.5 144 20 77/53 94 Room Air Physical Exam GENERAL: Patient is awake, alert, and somewhat anxious appearing, but comfortable. EYES: The conjunctivae are clear. The pupils are round and reactive. EARS, NOSE, MOUTH AND THROAT: The nose is without any evidence of any deformity. Mucous membranes are moist tongue is midline NECK: The neck is nontender and supple. RESPIRATORY: Lung sounds diminished in the right lung field, rales in the right base, mildly tachypneic. CARDIOVASCULAR: Tachycardic rate, but regular rhythm noted there are no definite murmurs noted to auscultation. GASTROINTESTINAL: The abdomen is soft. Bowel sounds are present in all quadrants. Abdomen is nontender BACK: No midline tenderness or or step-off noted range of motion in flexion extension as well as rotation no signs of muscle spasm noted MUSCULOSKELETAL/EXTREMITIES: There is no evidence of gross deformity full range of motion is noted in the hips and shoulders SKIN: There is no obvious evidence of any rash. There are no petechiae, pallor or cyanosis noted. Pedal edema bilaterally. NEUROLOGIC: Patient is awake alert and oriented x3. Medical Decision & Procedures ER Provider Diagnostic Interpretation: X-ray results as stated below per interpretation by me and the radiologist. CHEST ONE VIEW PORTABLE CLINICAL HISTORY: Sepsis. COMPARISON STUDY: Chest radiograph performed earlier today. FINDINGS: A right chest tube is in place. A small right apical pneumothorax is unchanged since prior exam. There is a trace right pleural effusion. There is subcutaneous gas within the right chest wall. There is no evidence of pulmonary edema. There is no consolidation to suggest pneumonia. IMPRESSION: No change in a small right apical pneumothorax with right chest tube in place. Unchanged appearance of the chest. Electronically signed by: Drew Michelle M.D. 07/31/2016 5:44 PM Dictated Date/Time: 07/31/2016 5:42 PM Laboratory Results 07/31/16 17:00 Red Blood Count 4.72, Mean Corpuscular Volume 87.3, Mean Corpuscular Hemoglobin 30.5, Mean Corpuscular Hemoglobin Concent 35.0, Mean Platelet Volume 8.8, Neutrophils (%) (Auto) 85.3, Lymphocytes (%) (Auto) 7.0, Monocytes (%) (Auto) 6.4, Eosinophils (%) (Auto) 0.6, Basophils (%) (Auto) 0.2, Neutrophils # (Auto) 11.19, Lymphocytes # (Auto) 0.92, Monocytes # (Auto) 0.84, Eosinophils # (Auto) 0.08, Basophils # (Auto) 0.02 07/31/16 17:00 Test 07/31/16 17:00 07/31/16 17:10 White Blood Count 13.11 K/uL (4.8-10.8) Red Blood Count 4.72 M/uL (4.7-6.1) Hemoglobin 14.4 g/dL (14.0-18.0) Hematocrit 41.2 % (42-52) Mean Corpuscular Volume 87.3 fL (80-100) Mean Corpuscular Hemoglobin 30.5 pg (25-34) Mean Corpuscular Hemoglobin Concent 35.0 g/dl (32-36) Platelet Count 280 K/uL (130-400) Mean Platelet Volume 8.8 fL (7.4-10.4) Neutrophils (%) (Auto) 85.3 % Lymphocytes (%) (Auto) 7.0 % Monocytes (%) (Auto) 6.4 % Eosinophils (%) (Auto) 0.6 % Basophils (%) (Auto) 0.2 % Neutrophils # (Auto) 11.19 K/uL (1.4-6.5) Lymphocytes # (Auto) 0.92 K/uL (1.2-3.4) Monocytes # (Auto) 0.84 K/uL (0.11-0.59) Eosinophils # (Auto) 0.08 K/uL (0-0.5) Basophils # (Auto) 0.02 K/uL (0-0.2) RDW Standard Deviation 43.2 fL (36.4-46.3) RDW Coefficient of Variation 13.5 % (11.5-14.5) Immature Granulocyte % (Auto) 0.5 % Immature Granulocyte # (Auto) 0.06 K/uL (0.00-0.02) Erythrocyte Sedimentation Rate 21 mm/hr (0-14) Prothrombin Time 10.5 SECONDS (9.0-12.0) Prothromb Time International Ratio 1.0 (0.9-1.1) Activated Partial Thromboplast Time 28.5 SECONDS (21.0-31.0) Partial Thromboplastin Ratio 1.1 Anion Gap 10.0 mmol/L (3-11) Est Creatinine Clear Calc Drug Dose 57.1 ml/min Estimated GFR () 71.6 Estimated GFR (Non- 61.8 BUN/Creatinine Ratio 15.9 (10-20) Calcium Level 8.6 mg/dl (8.5-10.1) Phosphorus Level 2.3 mg/dl (2.5-4.9) Magnesium Level 1.9 mg/dl (1.8-2.4) Total Bilirubin 0.5 mg/dl (0.2-1) Aspartate Amino Transf (AST/SGOT) 11 U/L (15-37) Alanine Aminotransferase (ALT/SGPT) 17 U/L (12-78) Alkaline Phosphatase 122 U/L (45-117) Total Creatine Kinase 35 U/L (39-308) Creatine Kinase MB 0.7 ng/ml (0.5-3.6) Creatine Kinase MB Ratio 2.0 (0-3.0) Troponin I < 0.015 ng/ml (0-0.045) C-Reactive Protein 2.25 mg/dl (0-0.29) Pro-B-Type Natriuretic Peptide 99 pg/ml (0-1800) Total Protein 6.5 gm/dl (6.4-8.2) Albumin 3.1 gm/dl (3.4-5.0) Globulin 3.4 gm/dl (2.5-4.0) Albumin/Globulin Ratio 0.9 (0.9-2) Lipase 65 U/L (73-393) Bedside Lactic Acid Venous 2.45 mmol/L (0.90-1.70) Laboratory results per my review. Medications Administered Medications (Trade) Dose Ordered Sig/[place] Route Start Time Stop Time Status Last Admin Dose Admin Sodium Chloride (Nss 1000ml) 1,000 ml @ 999 mls/hr Q1H1M ONCE IV 07/31/16 16:58 07/31/16 17:58 DC 07/31/16 17:17 999 MLS/HR Piperacillin Sod/ Tazobactam Sod (Zosyn Iv) 4.5 gm NOW STAT IV 07/31/16 17:28 07/31/16 17:30 DC 07/31/16 17:43 4.5 GM ECG Indication: tachycardia Rate (beats per minute): 131 Rhythm: sinus tachycardia Findings: Q waves (Inferior), no ectopy Comparison ECG Date: 02-Jul-2016 Change: Increased rate, otherwise no change. ED Course 1656: The patient was evaluated in room A1. A complete history and physical examination were performed. 1658: NSS 1000 ml @ 999 mls/hr IV. 1728: Zosyn Iv 4.5 gm IV. 173: I discussed the patient's case with Dr. Arevalo, [facility] [place] - thoracic surgery. The patient will be evaluated for further management. 1740: I reevaluated the patient. I discussed the results and treatment plan with him. He verbalized understanding and agreement. The patient will be evaluated for further management. 1839: NSS 1000 ml @ 999 mls/hr IV. Medical Decision Prior records/ancillary studies reviewed. Triage Nursing notes reviewed. Additional history obtained from family. The patient's history was concerning for fever. Differential diagnosis: Etiologies such as viral syndrome, otitis, pharyngitis, pneumonia, influenza, meningitis, urinary tract infection, sepsis, bacteremia, as well as others were entertained. The patient is an 81-year-old male who presented to the emergency department for an evaluation of not feeling well generalized weakness and shaking. The patient had a subjective fever at home. He presented to the emergency department with physical exam that was thought to be consistent with early sepsis. The patient was hypotensive and tachycardic. He was started on IV fluids and IV antibiotics. He doesn't a history of a recent pneumonectomy for a lung mass which was felt to be consistent with lung cancer. It was felt that the entire mass was removed and the patient is currently not receiving chemotherapy or radiation. I discussed his case with the patient's primary cardiothoracic surgical group. They evaluated the patient in the emergency department and felt that he was a good candidate for inpatient management the patient was feeling much better on subsequent reevaluation. I discussed the patient's laboratory and radiographic studies with him and his family members. Consults Time Called: 1725 Consulting Physician: Dr. Arevalo, [facility] [place] - thoracic surgery Returned Call: [phone] I discussed the patient's case with him. The patient will be evaluated for further management. Impression Primary Impression: Sepsis Scribe Attestation The scribe's documentation has been prepared under my direction and personally reviewed by me in its entirety. I confirm that the note above accurately reflects all work, treatment, procedures, and medical decision making performed by me. Departure Information Dispostion Being Evaluated By Surgeon Jose C Mercedes M.D. (PCP) Patient Instructions My [facility] Problem Qualifiers Primary Impression: Sepsis Sepsis type: sepsis due to unspecified organism Qualified Codes: A41.9 - Sepsis, unspecified organism
[2016-07-31 17:33] LABS: PARTIAL THROMBOPLASTIN RATIO 1.1; PROTHROMBIN TIME (PATIENT) 10.5 SECONDS (9.0-12.0)
[2016-07-31 17:35] LABS: ALT/SGPT 17 U/L (12-78); AST/SGOT 11 U/L (15-37); BLOOD UREA NITROGEN 18 mg/dl (7-18); BUN/CREATININE RATIO 15.9 (10-20); CALCIUM 8.6 mg/dl (8.5-10.1); CARBON DIOXIDE 22 mmol/L (21-32); CHLORIDE 101 mmol/L (98-107); GLUCOSE 141 mg/dl (70-99); MAGNESIUM 1.9 mg/dl (1.8-2.4); POTASSIUM 4.8 mmol/L (3.5-5.1); SODIUM 133 mmol/L (136-145)
[2016-07-31 17:38] LABS: ALB/GLOB RATIO 0.9 (0.9-2); ALKALINE PHOSPHATASE 122 U/L (45-117); C-REACTIVE PROTEIN 2.25 mg/dl (0-0.29); PHOSPHORUS 2.3 mg/dl (2.5-4.9)
--- NOTE | 2016-07-31 17:45 | DIAGNOSTIC IMAGING REPORT ---
CHEST ONE VIEW PORTABLE CLINICAL HISTORY: Sepsis. COMPARISON STUDY: Chest radiograph performed earlier today. FINDINGS: A right chest tube is in place. A small right apical pneumothorax is unchanged since prior exam. There is a trace right pleural effusion. There is subcutaneous gas within the right chest wall. There is no evidence of pulmonary edema. There is no consolidation to suggest pneumonia. IMPRESSION: No change in a small right apical pneumothorax with right chest tube in place. Unchanged appearance of the chest. Electronically signed by: Drew Michelle M.D. 07/31/2016 5:44 PM Dictated Date/Time: 07/31/2016 5:42 PM
[2016-07-31] MEDS ORDERED: ONDANSETRON INJ 2 MG/ML 2 ML VIAL IV PRN (18:00)
[2016-07-31 18:15] LABS: VEN BLD GAS O2 SATURATION < 60.0 %; VEN BLOOD GAS BASE EXCESS -0.1 mmol/L; VENOUS BLOOD GAS PCO2 36 mmHg (38.0-50.0); VENOUS BLOOD GAS PO2 30 mmHg
--- NOTE | 2016-07-31 18:31 | HISTORY & PHYSICAL EXAMINATION ---
DATE OF ADMISSION: 07/31/2016 SUBJECTIVE: Mr. Espino had a chest tube disconnected today. He came into the ER. He really did not have much of a pneumothorax. He had a 2 cm separation at the apex, but otherwise, I thought his x-ray looked pretty good. The patient had the Heimlich valve reattached his chest tube and was discharged home. There was some air initially, but really not much. His pulse oximetry has been fine. He has been 94% on room air; however, came back in because he felt weak. His heart rate was in the 140s, temperature was 37.5, blood pressure was 77/53. We are admitting him now for antibiotics. Quite frankly, the fluid looks serous coming out of his chest tube and there really is not very much. BUN and creatinine are 18 and 1.1. Sodium is 133. White count is mildly elevated at 13,102 and a hemoglobin of 14.4. Complained of some abdominal pain. His lactic acid was 2.45 but his ESR was not elevated. C-reactive protein was 2.25. His pressure came out nicely with some fluids. I am going to admit him on antibiotics. The chest tube really does not have much of an air leak now and I think we may be able to pull this out in the near future. Will see how he looks in the morning. I am going to admit him for parenteral antibiotics.
[2016-07-31] MEDS ORDERED: SODIUM CHLORIDE 0.9% 1000ML 1,000 ML IV STA (18:39)
[2016-07-31 19:02] VITALS: BP 103/61; PULSE 112; TEMP 37.5; O2SAT 93; Ht 177.8 cm; Wt 88.9 kg
[2016-07-31 19:05] VITALS: O2SAT 93
[2016-07-31] MEDS: SODIUM CHLORIDE 0.9% 1000ML 1,000 ML IV SCH (20:00)
[2016-07-31] MEDS ORDERED: PIPERACILL/TAZOBAC CONSULT ACTIVE PRN (20:30)
[2016-07-31] MEDS: ATORVASTATIN 10 MG TAB PO SCH (21:02)
[2016-07-31] MEDS: ENOXAPARIN 40 MG/0.4 ML SYR SQ SCH (21:03)
[2016-07-31 23:12] VITALS: BP 94/63; PULSE 105; TEMP 36.7; O2SAT 97
[2016-07-31] MEDS: PIPERACILL/TAZOBAC IV 3.375 GM in DEXTROSE 5% 100ML 100 ML IV SCH (23:39)
[2016-08-01] MEDS: SODIUM CHLORIDE 0.9% 1000ML 1,000 ML IV SCH (04:16)
[2016-08-01 05:53] LABS: BASO % 0.1 %; BASO ABS # 0.01 K/uL (0-0.2); COMPLETE YES; EOS % 0.7 %; HEMATOCRIT 36.6 % (42-52); IG% 0.5 %; LYMPH % 10.5 %; LYMPH ABS # 1.19 K/uL (1.2-3.4); MEAN CELL VOLUME 89.1 fL (80-100); MEAN CORPUSCULAR HEMOGLOBIN 30.2 pg (25-34); MEAN CORPUSCULAR HGB CONC 33.9 g/dl (32-36); MEAN PLATELET VOLUME 9.1 fL (7.4-10.4); MONO % 8.6 %; NEUT % 79.6 %; PLATELET COUNT 247 K/uL (130-400); RED BLOOD COUNT 4.11 M/uL (4.7-6.1); WHITE BLOOD COUNT 11.34 K/uL (4.8-10.8)
[2016-08-01 06:31] LABS: BUN/CREATININE RATIO 17.2 (10-20); CREATININE 0.97 mg/dl (0.60-1.40); POTASSIUM 4.6 mmol/L (3.5-5.1)
[2016-08-01] MEDS: PIPERACILL/TAZOBAC IV 3.375 GM in DEXTROSE 5% 100ML 100 ML IV SCH ×3 (07:07→23:32)
[2016-08-01] MEDS: ASPIRIN 81 MG ECTAB PO SCH (07:10)
[2016-08-01] MEDS: ACETAMINOPHEN 325 MG TAB PO PRN ×2 (07:10→14:13)
[2016-08-01 07:54] VITALS: BP 95/62; PULSE 89; TEMP 36.9; O2SAT 94
--- NOTE | 2016-08-01 11:29 | SURGERY PROGRESS NOTE ---
DATE: 08/01/2016 DATE: 08/01/2016. Mr. Espino was seen today on 08/01/2016. I readmitted him last night. I do not think his main problems are occurring in his chest actually. He has no air leak with minimal amount of serous fluid and I removed his chest tube. Chest x-ray is pending at this time. The patient is not a complainer. He really has had very little pain with this entire process; however, the patient is complaining of abdominal pain and nausea. He is not taking narcotics. He is moving his bowels normally. His abdomen is nice and soft. He has good bowel sounds. It is nontender. I am going to start him on Prevacid today and keep him another day. His white count has dropped from about 13,110 and 11,340. He is not acidotic. His vital signs have been stable. Respiration rate is 16 on room air with 94% sats. Heart rates down into the 80s. Hopefully if his labs and the patient look good tomorrow morning we will be able to discharge him.
--- NOTE | 2016-08-01 11:42 | DIAGNOSTIC IMAGING REPORT ---
SINGLE VIEW CHEST CLINICAL HISTORY: Follow-up status post right pulmonary resection. FINDINGS: An AP, portable, upright chest radiograph is compared to study dated 07/31/2016 and correlated with chest CT dated 05/04/2016. The examination is degraded by portable technique and patient rotation. The heart is mildly enlarged and there is atherosclerotic calcification of the thoracic aorta. Emphysema and chronic interstitial thickening are similar to previous. There is postoperative change and volume loss consistent with a history of right pulmonary resection. Suture material is seen overlying the right hilum. A chest tube has been removed as compared to yesterday. No pneumothorax is seen. There are increasing airspace opacities at the right lung base as well as pleural fluid. The skeletal structures are osteopenic. Degenerative change and scoliosis are noted in the thoracic spine. There are healed left-sided rib fractures. Subcutaneous emphysema is seen along the right chest wall. IMPRESSION: 1. A right-sided chest tube has been removed. No pneumothorax is clearly identified. 2. Cardiomegaly and emphysema. 3. There are postoperative changes from right-sided pulmonary resection with associated pleural fluid at the right lung base. 4. There are increasing airspace opacities in the right lower lung. This could present atelectasis versus a developing infectious/inflammatory pneumonitis. Clinical correlation will be required. Electronically signed by: José Luis Dyer M.D. 08/01/2016 11:41 AM Dictated Date/Time: 08/01/2016 11:38 AM
[2016-08-01 12:00] VITALS: BP 95/63; PULSE 77; TEMP 36.8; O2SAT 92
[2016-08-01 14:56] VITALS: BP 92/56; PULSE 92; TEMP 36.9; O2SAT 95
[2016-08-01] MEDS: ATORVASTATIN 10 MG TAB PO SCH (21:50)
[2016-08-01] MEDS: LANSOPRAZOLE SOLUTAB 30 MG PO SCH (21:51)
[2016-08-01] MEDS: ENOXAPARIN 40 MG/0.4 ML SYR SQ SCH (21:51)
[2016-08-01 23:00] VITALS: BP 91/55; PULSE 94; TEMP 37.6; O2SAT 94
[2016-08-02 06:10] LABS: BUN/CREATININE RATIO 13.4 (10-20); CALCIUM 8.1 mg/dl (8.5-10.1); CREATININE 0.92 mg/dl (0.60-1.40); POTASSIUM 4.3 mmol/L (3.5-5.1)
[2016-08-02 06:19] LABS: ALB/GLOB RATIO 0.7 (0.9-2)
[2016-08-02 06:54] VITALS: BP 96/60; PULSE 100; TEMP 37.8; O2SAT 94
[2016-08-02 08:12] LABS: BASO % 0.2 %; BASO ABS # 0.02 K/uL (0-0.2); EOS % 1.3 %; HEMATOCRIT 31.9 % (42-52); IG% 0.8 %; LYMPH % 9.8 %; LYMPH ABS # 0.89 K/uL (1.2-3.4); MEAN CELL VOLUME 87.4 fL (80-100); MEAN CORPUSCULAR HEMOGLOBIN 29.3 pg (25-34); MEAN PLATELET VOLUME 8.7 fL (7.4-10.4); MONO % 9.5 %; NEUT % 78.4 %; PLATELET COUNT 214 K/uL (130-400); RED BLOOD COUNT 3.65 M/uL (4.7-6.1); WHITE BLOOD COUNT 9.07 K/uL (4.8-10.8)
[2016-08-02] MEDS: PIPERACILL/TAZOBAC IV 3.375 GM in DEXTROSE 5% 100ML 100 ML IV SCH ×3 (08:17→23:29)
[2016-08-02] MEDS: LANSOPRAZOLE SOLUTAB 30 MG PO SCH ×2 (08:17→20:34)
[2016-08-02] MEDS: ASPIRIN 81 MG ECTAB PO SCH (08:17)
[2016-08-02 08:19] LABS: COMPLETE YES; MEAN CORPUSCULAR HGB CONC 33.5 g/dl (32-36)
--- NOTE | 2016-08-02 08:24 | DIAGNOSTIC IMAGING REPORT ---
CT OF THE CHEST WITHOUT IV CONTRAST CLINICAL HISTORY: Pleural effusion. COMPARISON STUDY: PET/CT June 08, 2016 and chest radiograph August 01, 2016. CT DOSE: 435.16 mGy.cm TECHNIQUE: Axial images of the chest were obtained without IV contrast. Images were reviewed in the axial, sagittal, and coronal planes. IV contrast was not administered for this examination. FINDINGS: A hypodense left lobe thyroid nodule is again noted. The size of the heart is normal. There is a small hiatal hernia. No enlarged thoracic lymph nodes are present. There is subcutaneous gas within the right chest and lower neck. A small amount of right apical pleural gas is noted. There is a small to moderate partially loculated right pleural effusion. A few small opacities within the right lung which contain locules of gas are noted. There are findings consistent with a right upper lobectomy. Left lung is clear. There is no left pneumothorax. Bony thorax and upper abdomen are unremarkable exception of mild splenomegaly and a lateral segment hepatic cyst. IMPRESSION: 1. Status post right upper lobectomy. Right hydropneumothorax with small amount of pleural gas and small to moderate loculated right pleural effusion. 2. Several patchy right lung airspace opacities, several which contain locules of gas. 3. Subcutaneous within the right chest wall and lower neck Electronically signed by: Drew Michelle M.D. 08/02/2016 8:23 AM Dictated Date/Time: 08/02/2016 8:14 AM
[2016-08-02 08:28] VITALS: TEMP 37.5
--- NOTE | 2016-08-02 10:03 | SURGERY PROGRESS NOTE ---
DATE: 08/02/2016 Mr. Espino was seen today, on 08/02/2016. He looks better to me. His white count is normal now at 9080. Hemoglobin has dropped, but I think that is because of hemodilution. I am going to stop his IV fluids today. His vital signs look stable. His heart rate is in the 90s to 100s. His blood pressure is still a little low at 96/60 and 91/55. Having said that, he had no evidence of acidosis. His bicarbonate is 28. His BUN and creatinine are 12 and 0.92. His lactic acid level is 0.9. I did a CT scan on him today and he does have some loculated fluid along the lung, but there is no pneumothorax. I am still a little concerned because he is having some temperature elevation at 37.8. I am going to discontinue his IV fluids, but continue the IV antibiotics. We will see how he looks in the morning. His cultures have all been negative thus far.
[2016-08-02 15:06] VITALS: BP 100/66; PULSE 101; TEMP 36.7; O2SAT 97
[2016-08-02] MEDS: ATORVASTATIN 10 MG TAB PO SCH (20:34)
[2016-08-02] MEDS: ENOXAPARIN 40 MG/0.4 ML SYR SQ SCH (20:35)
[2016-08-02 22:47] VITALS: BP 96/60; PULSE 93; TEMP 37.2; O2SAT 94
[2016-08-03 06:43] VITALS: BP 123/75; PULSE 91; TEMP 37.2; O2SAT 93
--- NOTE | 2016-08-03 08:27 | Surgery Progress Note ---
Subjective Date of Service: August 03, 2016. Pt. notes his stomach feels full, but no abdominal pain. No N/V. No SOB. No dysuria. No rigors, fevers, or chills. Objective Vitals Date Time Temp Pulse Resp B/P Pulse Ox O2 Delivery O2 Flow Rate FiO2 08/03/16 07:15 Room Air 08/03/16 06:43 37.2 91 18 123/75 93 Room Air 08/02/16 23:15 Room Air 08/02/16 22:47 37.2 93 18 96/60 94 Room Air 08/02/16 16:00 Room Air 08/02/16 15:06 36.7 101 18 100/66 97 Room Air 08/02/16 08:28 37.5 Physical Exam General: + well developed, + well nourished, No distress CV: + RRR Pulmonary: + lungs clear, No accessory muscle use, No respiratory distress Abdomen: + non tender, + non-distended, + soft Neurologic: + alert & oriented x 3 Assessment & Plan 81 year old male s/p RUL; readmitted due to concern for sepsis -airspace opacities noted in rihgt lung on CT scan -blood cultures (-) -will keep as inpt. and continue IV zosyn (day #4) -continue ambulation -lovenox for DVT prevention
[2016-08-03] MEDS: PIPERACILL/TAZOBAC IV 3.375 GM in DEXTROSE 5% 100ML 100 ML IV SCH ×2 (08:33→15:31)
[2016-08-03] MEDS: ASPIRIN 81 MG ECTAB PO SCH (08:35)
[2016-08-03] MEDS: LANSOPRAZOLE SOLUTAB 30 MG PO SCH ×2 (08:36→20:47)
[2016-08-03 14:54] VITALS: BP 106/68; PULSE 90; TEMP 37; O2SAT 95
[2016-08-03] MEDS: ATORVASTATIN 10 MG TAB PO SCH (20:47)
[2016-08-03] MEDS: ENOXAPARIN 40 MG/0.4 ML SYR SQ SCH (20:47)
[2016-08-03 22:45] VITALS: BP 109/69; PULSE 91; TEMP 37; O2SAT 94
[2016-08-04] MEDS: PIPERACILL/TAZOBAC IV 3.375 GM in DEXTROSE 5% 100ML 100 ML IV SCH ×2 (00:08→07:30)
[2016-08-04 07:10] VITALS: BP 106/68; PULSE 78; TEMP 36.8; O2SAT 95
[2016-08-04 07:18] LABS: CREATININE 0.87 mg/dl (0.60-1.40)
[2016-08-04] MEDS ORDERED: AMOX875T PO (08:32)
[2016-08-04] MEDS: ASPIRIN 81 MG ECTAB PO SCH (08:33)
[2016-08-04] MEDS: LANSOPRAZOLE SOLUTAB 30 MG PO SCH (08:33)
--- NOTE | 2016-08-04 08:34 | Discharge Instructions ---
Discharge Instructions Date of Service August 04, 2016. Admission Reason for Admission: Hypotension Discharge Discharge Diagnosis / Problem: Hypotension Discharge Goals Goal(s): Decrease discomfort Activity Recommendations Activity Limitations: resume your previous activity . Instructions / Follow-Up Instructions / Follow-Up 1. Office appointment with Dr. Arevalo in 1 week. You will need a chest x- ray prior to appointment. Office will call you with date and time of appointment. Current Hospital Diet Patient's current hospital diet: Regular Diet Discharge Diet Recommended Diet: Regular Diet Pending Studies Studies pending at discharge: no Medical Emergencies . Who to Call and When: Medical Emergencies: If at any time you feel your situation is an emergency, please call 911 immediately. . Non-Emergent Contact Non-Emergency issues call your: Surgeon Call Non-Emergent contact if: you have a fever, your pain is not controlled, wound has increased drainage . "Provider Documentation" section prepared by Chapin Barone. . VTE Core Measure Inpt VTE Proph given/why not?: Enoxaparin (Lovenox)SQ
[2016-08-04 09:23] VITALS: BP 106/68; PULSE 78; TEMP 36.8; O2SAT 95
--- NOTE | 2016-08-04 11:28 | DISCHARGE SUMMARY ---
DATE OF DISCHARGE: 08/04/2016. DISCHARGE DIAGNOSES: 1. Malfunctioning right chest tube. 2. Status post thoracoscopic right upper lobectomy for early stage lung cancer. HOSPITAL COURSE: This is a very nice 81-year-old male who came in and was found to have an asymptomatic mass in his right upper lobe. I took him to the operating room and on by 07/15/2016 performed a right thoracoscopy with thoracoscopic right upper lobectomy. He did very well with this. I was quite happy with his postoperative course; however, he had an air leak. It was small so I sent him home with a Heimlich valve and he did very well initially; however, he developed some problems and his Heimlich valve became disconnected and he had a small pneumothorax. He presented back to the Emergency Room after he was sent home on 07/31/2016. We went ahead and readmitted him as he was tachycardic and hypotensive. He responded to fluids. He looked quite good. I was able to get his chest tube out the following day. He really had no pneumothorax; however, he had a mild temperature elevation and had mild leukocytosis and I performed a CT scan. He did have some fluid in his chest, but I was not concerned about his CT scan as I think this will resorb over time. I was still a bit concerned, so I kept him in the hospital and finally after he had been here 4 days and gotten parenteral antibiotics he looked very good. On the morning of discharge, he had no pain. He had been ambulating in the hallway. He had been eating well. He had no leukocytosis. He had no fever and he had no tachycardia. His incisions all looked quite good. I discharged him home and will see him back in the office in 1 week with a chest x-ray.
== END 2016-08-04 12:49 | disposition home health service (06) | DRG 872 ==
LOC: ENRESERVTM → ENRESERVDT → C.EDB 16:35 → C.MSW 17:55
PROVIDERS: ADMIT Surgery; ATTEND Surgery
DX: A41.9 Sepsis, unspecified organism (principal); I10 Essential (primary) hypertension; E78.00 Pure hypercholesterolemia, unspecified; Z79.82 Long term (current) use of aspirin; Z79.899 Other long term (current) drug therapy; Z98.890 Other specified postprocedural states; K59.00 Constipation, unspecified; R91.1 Solitary pulmonary nodule; I51.7 Cardiomegaly; J43.9 Emphysema, unspecified; R91.8 Other nonspecific abnormal finding of lung field; Z45.89 Encounter for adjustment and management of other implanted devices

== ENCOUNTER → 2016-08-06 | Outpatient (CLI) | payer OTHER ==
[~2016-08-06] MED LIST changes: +AMOX875T PO
--- NOTE | 2016-08-06 11:29 | DIAGNOSTIC IMAGING REPORT ---
CHEST 2 VIEWS ROUTINE CLINICAL HISTORY: J93.9 [id number] COMPARISON STUDY: 08/01/2016 FINDINGS: Postsurgical changes are again evident on the right. There is right-sided pleural thickening/fluid, and a linear scarring at the right lung base. There is decreasing subcutaneous emphysema. No pneumothorax is visualized. There is improving aeration of the right lung base. Left lung remains clear.. There is no failure. There are old left-sided rib fractures.[ IMPRESSION: Postsurgical changes with persistent right-sided pleural thickening/fluid. Improving aeration of the right lung base. No pneumothorax is visualized. Electronically signed by: Massimo Powell M.D. 08/06/2016 11:27 AM Dictated Date/Time: 08/06/2016 11:25 AM
== END | disposition home or self-care (01) ==
LOC: C.RAD1850 10:30
PROVIDERS: ATTEND Surgery
DX: J93.9 Pneumothorax, unspecified (principal)

== ENCOUNTER → 2016-08-13 | Outpatient (CLI) | payer OTHER ==
[~2016-08-13] MED LIST changes: -AMOX875T PO
--- NOTE | 2016-08-13 09:26 | DIAGNOSTIC IMAGING REPORT ---
CHEST 2 VIEWS ROUTINE CLINICAL HISTORY: Pulmonary nodule. COMPARISON STUDY: Chest CT July 25, 2016 and chest radiograph August 06, 2016. FINDINGS: Postoperative findings within the right hemithorax are noted. There is no pneumothorax. A small right pleural effusion is either stable or slightly increased since prior exam. There is no evidence for pulmonary edema. Mild right lower lung opacity has improved. IMPRESSION: 1. Postoperative findings within the right hemithorax. No pneumothorax. Small right pleural effusion, either stable or slightly increased since prior exam. 2. Slight interval improvement in right lung aeration. Electronically signed by: Drew Michelle M.D. 08/13/2016 9:25 AM Dictated Date/Time: 08/13/2016 9:23 AM
== END ==
LOC: C.RAD1850 09:13
PROVIDERS: ATTEND Physician Assistant
DX: R91.1 Solitary pulmonary nodule (principal)

== ENCOUNTER → 2016-09-14 | Outpatient (CLI) | payer OTHER ==
[~2016-09-14] MED LIST changes: -ATOR10TA82 PO; +ATOR10TA88 PO
--- NOTE | 2016-09-14 08:47 | DIAGNOSTIC IMAGING REPORT ---
CHEST 2 VIEWS ROUTINE CLINICAL HISTORY: Pulmonary nodule. COMPARISON STUDY: Chest CT August 02, 2016 and chest radiograph August 13, 2016. FINDINGS: There is no pneumothorax. Postoperative findings within the right hemithorax are noted. A small right pleural effusion has decreased in size. There is no evidence for pulmonary edema. Cardiac size is normal. Mediastinal contours are normal. Linear right lung opacities suggest atelectasis or scarring. IMPRESSION: 1. Interval decrease in size of a small right pleural effusion. 2. Otherwise, unchanged appearance of the chest. Electronically signed by: Drew Michelle M.D. 09/14/2016 8:46 AM Dictated Date/Time: 09/14/2016 8:41 AM
== END | disposition home or self-care (01) ==
LOC: C.RAD1850 08:19
PROVIDERS: ATTEND Physician Assistant
DX: R91.1 Solitary pulmonary nodule (principal); J90 Pleural effusion, not elsewhere classified

== ENCOUNTER → 2016-10-26 | Outpatient (CLI) | payer OTHER ==
[2016-10-26 12:27] LABS: BASO % 0.2 %; BASO ABS # 0.01 K/uL (0-0.2); COMPLETE YES; EOS % 1.4 %; HEMATOCRIT 40.6 % (42-52); IG% 0.4 %; LYMPH ABS # 1.94 K/uL (1.2-3.4); MEAN CELL VOLUME 88.8 fL (80-100); MEAN CORPUSCULAR HEMOGLOBIN 29.8 pg (25-34); MEAN CORPUSCULAR HGB CONC 33.5 g/dl (32-36); MEAN PLATELET VOLUME 9.6 fL (7.4-10.4); MONO % 9.2 %; NEUT % 53.8 %; PLATELET COUNT 177 K/uL (130-400); RED BLOOD COUNT 4.57 M/uL (4.7-6.1); WHITE BLOOD COUNT 5.55 K/uL (4.8-10.8)
[2016-10-26 13:04] LABS: BLOOD UREA NITROGEN 19 mg/dl (7-18); BUN/CREATININE RATIO 17.4 (10-20); CALCIUM 8.9 mg/dl (8.5-10.1); CARBON DIOXIDE 27 mmol/L (21-32); CHLORIDE 104 mmol/L (98-107); GLUCOSE 100 mg/dl (70-99); POTASSIUM 4.4 mmol/L (3.5-5.1); SODIUM 137 mmol/L (136-145)
== END | disposition home or self-care (01) ==
LOC: C.LABBFT 08:25
PROVIDERS: ATTEND Internal Medicine
DX: C34.90 Malignant neoplasm of unspecified part of unspecified bronchus or lung (principal)

== ENCOUNTER 2016-11-19 19:45 | Emergency (ER) | payer OTHER ==
[~2016-11-19] VITALS: Ht 177.8 cm; Wt 90.9 kg
[2016-11-19 19:58] VITALS: TEMP 36.6; Ht 177.8 cm; Wt 90.9 kg
[2016-11-19] MEDS ORDERED: SODIUM CHLORIDE 0.9% 1000ML 1,000 ML IV STA (20:28)
--- NOTE | 2016-11-19 20:36 | EMERGENCY ROOM VISIT NOTE ---
History Report prepared by Mallikaibdahiana: Ced Lawrence Under the Supervision of: Dr. Shar Bynum M.D. First contact with patient: 20:28 Chief Complaint: DIARRHEA Stated Complaint: SICK, DIARRHEA Nursing Triage Summary: Patient reports diarrhea since Wednesday. Denies pain or N/V. Patient tried calling PCP office but no one will return his call. History of Present Illness The patient is a 81 year old male who presents to the Emergency Room with complaints of constant diarrhea that began three days ago. He states that he has been experiencing diarrhea and nausea for the last couple of days. The patient states that his symptoms were mild until last night. He states that the has been having a bowel movement more frequently today. He admits that he took Ammonium, but denies any relief of symptoms.The patient states that he called his PCP, but he did not slat pickler. He states that he finally got in touch with the publicity consultant doctor who told him to report to the ED. The patient denies any contaminated food sources, sick contact, and abdominal pain. Source of History: patient Onset: three days ago Position: other (global) Timing: worsening Associated Symptoms: + nausea, No abdominal pain Review of Systems See HPI for pertinent positives & negatives. A total of 10 systems reviewed and were otherwise negative. Past Medical & Surgical Medical Problems: (1) Hypercholesteremia (2) Hypertension (3) Hypotension (4) Lung cancer Family History Cancer Diabetes mellitus Heart disease Hypertension Social History Smoking Status: Former Smoker Alcohol Use: occasionally Drug Use: none Marital Status: Housing Status: lives with family Occupation Status: retired Current/Historical Medications Scheduled Aspirin (Aspirin 81), 81 MG PO QAM Atorvastatin (Lipitor), 10 MG PO HS Lisinopril (Zestril), 10 MG PO QAM Allergies Coded Allergies: No Known Allergies (Verified , 11/19/16) Physical Exam Vital Signs Date Time Temp Pulse Resp B/P (MAP) Pulse Ox O2 Delivery O2 Flow Rate FiO2 11/19/16 22:16 90 20 109/63 98 Room Air 11/19/16 21:25 84 11/19/16 19:58 36.6 104 18 98/60 96 Room Air Physical Exam GENERAL: Patient is a healthy-appearing well-nourished 81 year old male. HEAD: Normocephalic atraumatic EYES: Ocular movements intact pupils equal and react to light OROPHARYNX mucous membranes are moist no exudates present no erythema or edema present NECK: Supple no nuchal rigidity CHEST: Good equal expansion LUNGS: Clear and equal to auscultation CARDIAC: Normal S1 and S2 ABDOMEN: Soft nontender no guarding BACK: No CVA tenderness EXTREMITIES: No pain upon palpation normal muscle strength in all groups no clubbing cyanosis or edema NEURO: Patient is following commands and answering questions appropriately. Alert and oriented x3 Cranial Nerves 2-12 grossly intact Medical Decision & Procedures Laboratory Results 11/19/16 21:04 Red Blood Count 4.67, Mean Corpuscular Volume 86.5, Mean Corpuscular Hemoglobin 28.9, Mean Corpuscular Hemoglobin Concent 33.4, Mean Platelet Volume 9.6, Neutrophils (%) (Auto) 59.5, Lymphocytes (%) (Auto) 23.0, Monocytes (%) (Auto) 16.4, Eosinophils (%) (Auto) 0.7, Basophils (%) (Auto) 0.2, Neutrophils # (Auto ) 2.53, Lymphocytes # (Auto) 0.98, Monocytes # (Auto) 0.70, Eosinophils # (Auto ) 0.03, Basophils # (Auto) 0.01 11/19/16 21:04 Test 11/19/16 20:55 11/19/16 21:04 White Blood Count 4.26 K/uL (4.8-10.8) Red Blood Count 4.67 M/uL (4.7-6.1) Hemoglobin 13.5 g/dL (14.0-18.0) Hematocrit 40.4 % (42-52) Mean Corpuscular Volume 86.5 fL (80-100) Mean Corpuscular Hemoglobin 28.9 pg (25-34) Mean Corpuscular Hemoglobin Concent 33.4 g/dl (32-36) Platelet Count 135 K/uL (130-400) Mean Platelet Volume 9.6 fL (7.4-10.4) Neutrophils (%) (Auto) 59.5 % Lymphocytes (%) (Auto) 23.0 % Monocytes (%) (Auto) 16.4 % Eosinophils (%) (Auto) 0.7 % Basophils (%) (Auto) 0.2 % Neutrophils # (Auto) 2.53 K/uL (1.4-6.5) Lymphocytes # (Auto) 0.98 K/uL (1.2-3.4) Monocytes # (Auto) 0.70 K/uL (0.11-0.59) Eosinophils # (Auto) 0.03 K/uL (0-0.5) Basophils # (Auto) 0.01 K/uL (0-0.2) RDW Standard Deviation 44.4 fL (36.4-46.3) RDW Coefficient of Variation 14.2 % (11.5-14.5) Immature Granulocyte % (Auto) 0.2 % Immature Granulocyte # (Auto) 0.01 K/uL (0.00-0.02) Anion Gap 6.0 mmol/L (3-11) Est Creatinine Clear Calc Drug Dose 48.8 ml/min Estimated GFR () 58.5 Estimated GFR (Non- 50.5 BUN/Creatinine Ratio 17.6 (10-20) Calcium Level 8.7 mg/dl (8.5-10.1) Total Bilirubin 0.4 mg/dl (0.2-1) Direct Bilirubin 0.1 mg/dl (0-0.2) Aspartate Amino Transf (AST/SGOT) 19 U/L (15-37) Alanine Aminotransferase (ALT/SGPT) 18 U/L (12-78) Alkaline Phosphatase 91 U/L (45-117) Total Protein 6.5 gm/dl (6.4-8.2) Albumin 3.3 gm/dl (3.4-5.0) Lipase 104 U/L (73-393) Date/Time Source Procedure Growth Status 11/19/16 20:55 Stool C.difficile Toxin B Gene (PCR) - Final No C. difficile toxin B gene detected Complete Labs reviewed by ED physician. Medications Administered Medications (Trade) Dose Ordered Sig/Madison Route Start Time Stop Time Status Last Admin Dose Admin Sodium Chloride 1,000 ml @ 999 mls/hr Q1H1M STAT IV 11/19/16 20:28 11/19/16 21:28 DC 11/19/16 21:05 999 MLS/HR Cholestyramine Resin (Questran Powder Light) 4 gm NOW STAT PO 11/19/16 20:40 11/19/16 20:41 DC 11/19/16 21:18 4 GM Potassium Chloride (Kirti Ciel Elix) 40 meq NOW STAT PO 11/19/16 22:08 11/19/16 22:09 DC 11/19/16 22:18 40 MEQ ED Course 2027: Ordered Sodium Chloride 1000 ml @ 999 mls/hr IV. 2028: Past medical records reviewed. The patient was evaluated in room C10. A complete history and physical examination was performed. 2039: Ordered Cholestyramine Resin 4 gram PO. 2207: Ordered Potassium Chloride 40 meq PO. 2220: Upon reexamination the patient is doing well. I discussed results and treatment plan with the patient. He verbalizes agreement and understanding. The patient is ready for discharge. Medical Decision The differential diagnosis includes etiologies such as appendicitis, diverticulitis, PUD, biliary pathology, UTI, pancreatitis, obstruction, mesenteric ischemia, aortic pathology, infections, inflammatory bowel disease, renal colic, as well as others were entertained. This is an 81-year-old male who presents emergency department complaining of diarrhea that has been ongoing for the past 2 days. The patient was able to provide a stool sample here in the emergency department. He was originally hypertensive upon arrival to the emergency department therefore an IV was established and the patient was given normal saline bolus. He was also given potassium for his hypokalemia. Repeat examination revealed improvement the patient's symptoms. The patient was started on cholestyramine and I encouraged him to continue using probiotics at home pending stool culture results. I do feel that the patient as well as to be discharged home. Serial abdominal examinations were performed on the patient in the emergency department and at no tender the patient exhibited a surgical abdomen or even abdominal tenderness. Based on this finding and using shared medical decision making I felt that the patient did not require a CAT scan. He will follow-up with gastroenterology. Medication Reconcilliation Current Medication List: was personally reviewed by me Blood Pressure Screening Patient's blood pressure: Normal blood pressure Impression Primary Impression: Diarrhea Scribe Attestation The scribe's documentation has been prepared under my direction and personally reviewed by me in its entirety. I confirm that the note above accurately reflects all work, treatment, procedures, and medical decision making performed by me. Departure Information Dispostion Home / Self-Care Referrals Jose C Can M.D. (PCP) Forms HOME CARE DOCUMENTATION FORM, IMPORTANT VISIT INFORMATION, WORK / SCHOOL INSTRUCTIONS Patient Instructions ED Diarrhea Viral, ED Diet Vomiting Diarrhea, My [facility] Additional Instructions Take probiotics for diarrhea Increase fluids for next 48 hours You have been examined and treated today on an emergency basis only. This is not a substitute for, or an effort to provide, complete comprehensive medical care. It is impossible to recognize and treat all injuries or illnesses in a single emergency department visit. It is therefore important that you follow up closely with Dr Can. Call as soon as possible for an appointment. Thank you for your time and consideration. I look forward to speaking with you again soon. Please don't hesitate to call us if you have any questions. Problem Qualifiers Primary Impression: Diarrhea Diarrhea type: unspecified type Qualified Codes: R19.7 - Diarrhea, unspecified
[2016-11-19] MEDS ORDERED: CHOLESTYRAMINE LIGHT 4 GM PKT PO STA (20:40)
[2016-11-19 21:23] LABS: BASO % 0.2 %; BASO ABS # 0.01 K/uL (0-0.2); COMPLETE YES; EOS % 0.7 %; HEMATOCRIT 40.4 % (42-52); IG% 0.2 %; LYMPH ABS # 0.98 K/uL (1.2-3.4); MEAN CELL VOLUME 86.5 fL (80-100); MEAN CORPUSCULAR HEMOGLOBIN 28.9 pg (25-34); MEAN CORPUSCULAR HGB CONC 33.4 g/dl (32-36); MEAN PLATELET VOLUME 9.6 fL (7.4-10.4); MONO % 16.4 %; NEUT % 59.5 %; PLATELET COUNT 135 K/uL (130-400); RED BLOOD COUNT 4.67 M/uL (4.7-6.1); WHITE BLOOD COUNT 4.26 K/uL (4.8-10.8)
[2016-11-19 21:43] LABS: BUN/CREATININE RATIO 17.6 (10-20); CREATININE 1.3 mg/dl (0.60-1.40); POTASSIUM 3.4 mmol/L (3.5-5.1)
[2016-11-19 22:02] LABS: CALCIUM 8.7 mg/dl (8.5-10.1)
[2016-11-19] MEDS ORDERED: POTASSIUM CHLORIDE 20 MEQ/15 ML UDC PO STA (22:08)
[2016-11-19 22:16] VITALS: BP 109/63; PULSE 90; O2SAT 98
[2016-11-24 07:38] LABS: NOROVIRUS RNA** TC 19098X NOT DETECTED; O&P GIARDIA AG NOT DETECTED (NOT DETECTED)
== END 2016-11-19 22:28 | disposition home or self-care (01) ==
LOC: C.EDB 19:46 → C.EDC 22:28
DX: R19.7 Diarrhea, unspecified (principal); E87.6 Hypokalemia; I10 Essential (primary) hypertension; E78.00 Pure hypercholesterolemia, unspecified; Z85.118 Personal history of other malignant neoplasm of bronchus and lung; Z87.891 Personal history of nicotine dependence; Z83.3 Family history of diabetes mellitus; Z82.49 Family history of ischemic heart disease and other diseases of the circulatory system; Z79.82 Long term (current) use of aspirin; Z79.899 Other long term (current) drug therapy

== ENCOUNTER → 2016-11-26 | Outpatient (CLI) | payer OTHER ==
[2016-11-26 12:31] LABS: BASO % 0.1 %; BASO ABS # 0.01 K/uL (0-0.2); COMPLETE YES; EOS % 0.4 %; HEMATOCRIT 39.8 % (42-52); IG% 1.7 %; LYMPH % 28.7 %; MEAN CELL VOLUME 90.2 fL (80-100); MEAN CORPUSCULAR HEMOGLOBIN 28.6 pg (25-34); MEAN CORPUSCULAR HGB CONC 31.7 g/dl (32-36); MEAN PLATELET VOLUME 9.1 fL (7.4-10.4); MONO % 7.7 %; NEUT % 61.4 %; PLATELET COUNT 231 K/uL (130-400); RED BLOOD COUNT 4.41 M/uL (4.7-6.1); WHITE BLOOD COUNT 7.66 K/uL (4.8-10.8)
== END | disposition home or self-care (01) ==
LOC: C.LABBFT 08:44
PROVIDERS: ATTEND Internal Medicine
DX: D64.9 Anemia, unspecified (principal)

== ENCOUNTER → 2016-11-30 | Outpatient (CLI) | payer OTHER ==
[2016-11-30 12:22] LABS: BASO % 0.2 %; BASO ABS # 0.01 K/uL (0-0.2); COMPLETE YES; EOS % 0.2 %; IG% 0.4 %; LYMPH % 30.3 %; LYMPH ABS # 1.66 K/uL (1.2-3.4); MEAN CELL VOLUME 88.5 fL (80-100); MEAN CORPUSCULAR HEMOGLOBIN 29.4 pg (25-34); MEAN CORPUSCULAR HGB CONC 33.3 g/dl (32-36); MONO % 7.7 %; NEUT % 61.2 %; PLATELET COUNT 196 K/uL (130-400); RED BLOOD COUNT 4.52 M/uL (4.7-6.1); WHITE BLOOD COUNT 5.47 K/uL (4.8-10.8)
[2016-11-30 12:38] LABS: FERRITIN 360.3 ng/ml (8.0-388.0)
--- NOTE | 2016-12-08 07:19 | CODING QUERY MEDICAL NECESSITY ---
SUPPORTING DIAGNOSIS NEEDED Dr. Can, A supporting diagnosis is required for the test/procedure performed on this patient in order for us to be reimbursed by the patient's insurance. Please provide a supporting diagnosis for the following test/procedure listed below next to the test name along with your signature. *If there is no additional diagnosis for this patient that would support the following test/procedure please document that below next to the test/procedure. Test(s)/Procedure(s) that require a supporting diagnosis: * ([id number]) B12 VITAMIN LEVEL DIAGNOSIS: * ([id number]) FOLATE LEVEL DIAGNOSIS: DATE OF SERVICE: 11/30/16 Provider Signature: Date: Thank you Giacomo Moss [facility] Information Management Once completed, please kindly fax back to [phone] For questions please call [phone]
== END | disposition home or self-care (01) ==
LOC: C.LABBFT 09:26
PROVIDERS: ATTEND Internal Medicine
DX: D64.9 Anemia, unspecified (principal)

== ENCOUNTER → 2017-01-21 | Outpatient (CLI) | payer OTHER ==
[~2017-01-21] MED LIST changes: +ATOR10TA82 PO; -ATOR10TA88 PO
--- NOTE | 2017-01-21 08:43 | DIAGNOSTIC IMAGING REPORT ---
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 Images are reviewed in the axial, sagittal, and coronal planes. IV contrast was not administered for this examination. A dose lowering technique was utilized adhering to the principles of ALARA. FINDINGS: Thyroid: There is a 22 mm left lobe thyroid nodule, similar in appearance the prior study Thoracic aorta: The ascending thoracic aorta measures 36 mm in diameter. Heart: The heart is normal in size. There are mild coronary artery calcifications. Lungs and pleural spaces: No pleural effusions are visualized. There is pulmonary emphysema. There are postsurgical changes of a right upper lobectomy. There is no focal pulmonary consolidation. There is a 3.7 mm right lower lobe point nodule located at the level of the right lung apex. This is visualized in image #[id number]. This was equivocally visualized on the preceding study. There is a 5.8 mm solid nodule within the lingula as visualized in image #[id number]. This measured 5.6 mm in April 2016 Mediastinum: There is no evidence of pathologic adenopathy Sylvia: There is no evidence of pathologic adenopathy given the limitations of a noncontrast study Axilla: There is no evidence of pathologic adenopathy Upper abdomen: There is a small hiatal hernia. There is a calcified gallstone. There is stable left adrenal thickening. Skeletal structures: There are no lytic or blastic osseous lesions. IMPRESSION: 1. Postsurgical changes of a right upper lobectomy 2. Emphysema 3. 3.7 mm right apical pulmonary nodule. 5.8 mm pulmonary nodule within the lingula. 12 month follow-up is recommended. 4. No evidence of pathologic adenopathy Electronically signed by: Massimo Powell M.D. 01/21/2017 8:42 AM Dictated Date/Time: 01/21/2017 8:30 AM
== END | disposition home or self-care (01) ==
LOC: C.CTS 08:12
PROVIDERS: ATTEND Surgery
DX: C34.90 Malignant neoplasm of unspecified part of unspecified bronchus or lung (principal)

== ENCOUNTER → 2017-05-10 | Outpatient (CLI) | payer OTHER ==
[2017-05-10 12:40] LABS: BASO % 0.2 %; BASO ABS # 0.01 K/uL (0-0.2); EOS % 1.1 %; EOS ABS # 0.06 K/uL (0-0.5); HEMATOCRIT 43.9 % (42-52); HEMOGLOBIN 14.7 g/dL (14.0-18.0); IG# 0.02 K/uL (0.00-0.02); LYMPH % 32.5 %; LYMPH ABS # 1.71 K/uL (1.2-3.4); MEAN CELL VOLUME 89.6 fL (80-100); MEAN CORPUSCULAR HGB CONC 33.5 g/dl (32-36); MEAN PLATELET VOLUME 9.7 fL (7.4-10.4); MONO % 8.7 %; MONO ABS # 0.46 K/uL (0.11-0.59); NEUT % 57.1 %; PLATELET COUNT 169 K/uL (130-400); RED CELL DISTRIBUTION WIDTH CV 14.4 % (11.5-14.5); RED CELL DISTRIBUTION WIDTH SD 46.9 fL (36.4-46.3); WHITE BLOOD COUNT 5.26 K/uL (4.8-10.8)
[2017-05-10 12:44] LABS: HEMOGLOBIN A1C 5.6 % (4.5-5.6)
[2017-05-10 14:41] LABS: ALBUMIN 3.6 gm/dl (3.4-5.0); ALT/SGPT 24 U/L (12-78); BLOOD UREA NITROGEN 23 mg/dl (7-18); CALCIUM 8.8 mg/dl (8.5-10.1); CARBON DIOXIDE 27 mmol/L (21-32); CHOLESTEROL 137 mg/dl (0-200); CREATININE 1.12 mg/dl (0.60-1.40); GLUCOSE 102 mg/dl (70-99); POTASSIUM 4.4 mmol/L (3.5-5.1); SODIUM 139 mmol/L (136-145)
[2017-05-10 14:51] LABS: ALKALINE PHOSPHATASE 106 U/L (45-117); AST/SGOT 15 U/L (15-37); LDL CHOLESTEROL CALCULATED 71 mg/dl; TOTAL PROTEIN 6.8 gm/dl (6.4-8.2)
== END | disposition home or self-care (01) ==
LOC: C.LABBFT 07:48
PROVIDERS: ATTEND Internal Medicine
DX: R73.03 Prediabetes (principal); E78.00 Pure hypercholesterolemia, unspecified

== ENCOUNTER 2017-06-06 17:29 | Emergency (ER) | payer OTHER ==
[~2017-06-06] VITALS: Ht 177.8 cm; Wt 103.8 kg
[2017-06-06 17:33] VITALS: TEMP 36.7; Ht 177.8 cm; Wt 103.8 kg
[2017-06-06] MEDS ORDERED: DEXAMETHASONE SOD INJ 4 MG/ML VIAL IV STA (17:47)
[2017-06-06] MEDS ORDERED: SODIUM CHLORIDE 0.9% 500ML 500 ML IV STA ×2 (17:47→19:44)
--- NOTE | 2017-06-06 17:59 | EMERGENCY ROOM VISIT NOTE ---
History Report prepared by Lynnette: Wing Deleon Under the Supervision of: Dr. Michi Brar M.D. First contact with patient: 17:41 Chief Complaint: RESPIRATORY PROBLEMS Stated Complaint: SOB, COUGH, HAD LUNG REMOVED IN AUGUST History of Present Illness The patient is an 82 year old male who presents to the Emergency Room with complaints of worsening shortness of breath beginning a few days ago. He currently rates his discomfort a 10/10 in severity. The patient's family states he had a lung resection 10 months ago for possible cancer. They report all of the cancerous cells were removed. The family notes the patient started shaking and became increasingly weak today. They state the patient also has a cough and produces white phlegm. The family reports his throat has become raw and sore. They note the patient has a history of smoking, and he stopped smoking when he had his lung resection. The family states he takes a baby aspirin daily. He reports he received his flu shot this year. The patient denies fevers, chills, nausea, vomiting, diarrhea, pain with urination, and having the flu this year. Source of History: patient Onset: few days ago Quality: other (SOB) Timing: worsening Associated Symptoms: + cough (white phlegm), + weakness Note: Associated symptoms: shaking Review of Systems See HPI for pertinent positives and negatives. A total of ten systems were reviewed and were otherwise negative. Past Medical & Surgical Medical Problems: (1) Hypercholesteremia (2) Hypertension (3) Hypotension (4) Lung cancer Family History Cancer Diabetes mellitus Heart disease Hypertension Social History Smoking Status: Former Smoker Alcohol Use: occasionally Drug Use: none Marital Status: Housing Status: lives with family Occupation Status: retired Current/Historical Medications Scheduled Aspirin (Aspirin 81), 81 MG PO QAM Atorvastatin (Lipitor), 10 MG PO HS Azithromycin (Zithromax), 250 MG PO DAILY Lisinopril (Zestril), 10 MG PO QAM Prednisone (Prednisone), 3 TAB PO DAILY Allergies Coded Allergies: No Known Allergies (Verified , 06/06/17) Physical Exam Vital Signs Date Time Temp Pulse Resp B/P (MAP) Pulse Ox O2 Delivery O2 Flow Rate FiO2 06/06/17 21:45 103 20 112/68 95 06/06/17 19:36 113 22 115/59 95 Room Air 06/06/17 19:34 122 06/06/17 18:27 77 18 97 Room Air 06/06/17 18:21 Room Air 06/06/17 17:47 Room Air 06/06/17 17:33 36.7 88 22 123/70 95 Room Air Physical Exam GENERAL: Awake, alert, fatigued-appearing, in no distress HENT: Normocephalic, atraumatic. Oropharynx is dry with cracked mucous membranes , otherwise unremarkable. EYES: Normal conjunctiva. Sclera non-icteric. NECK: Supple. No nuchal rigidity. FROM. No JVD. RESPIRATORY: Scattered and intermittent wheezes and rhonchi. CARDIAC: Regular rate, normal rhythm. Extremities warm and well perfused. Pulses equal. ABDOMEN: Soft, non-distended. No tenderness to palpation. No rebound or guarding. No masses. RECTAL: Deferred. MUSCULOSKELETAL: Chest examination reveals no tenderness. The back is symmetrical on inspection without obvious abnormality. There is no CVA tenderness to palpation. No joint edema. LOWER EXTREMITIES: Calves are equal size bilaterally and non-tender. No edema. No discoloration. NEURO: Normal sensorium. No sensory or motor deficits noted. SKIN: No rash or jaundice noted. Medical Decision & Procedures ER Provider Diagnostic Interpretation: X-ray: Per my interpretation, radiologist review. SINGLE VIEW CHEST CLINICAL HISTORY: Atypical chest pain. FINDINGS: An AP, portable, upright chest radiograph is compared to study dated 09/14/2016 and correlated with chest CT dated 01/21/2017. The examination is degraded by portable technique, motion artifact, and patient rotation. The heart is enlarged and there is atherosclerotic calcification of the thoracic aorta. Emphysema and chronic interstitial thickening are similar to previous. Again seen are postoperative changes and volume loss from right upper lobe resection. Suture material is seen overlying the right hilum. There is no airspace consolidation or large pleural effusion. No pneumothorax is identified. The skeletal structures are osteopenic. Degenerative change and scoliosis are noted in the thoracic spine. There are healed left-sided rib fractures. IMPRESSION: 1. Cardiomegaly, emphysema, and postoperative change from right-sided pulmonary resection. 2. No acute cardiopulmonary abnormality is seen. Electronically signed by: José Luis Dyer M.D. 06/06/2017 6:23 PM Dictated Date/Time: 06/06/2017 6:21 PM Laboratory Results 06/06/17 18:10 Red Blood Count 4.35, Mean Corpuscular Volume 87.4, Mean Corpuscular Hemoglobin 29.9, Mean Corpuscular Hemoglobin Concent 34.2, Mean Platelet Volume 9.0, Neutrophils (%) (Auto) 71.5, Lymphocytes (%) (Auto) 16.8, Monocytes (%) (Auto) 10.5, Eosinophils (%) (Auto) 0.8, Basophils (%) (Auto) 0.1, Neutrophils # (Auto ) 5.35, Lymphocytes # (Auto) 1.26, Monocytes # (Auto) 0.79, Eosinophils # (Auto ) 0.06, Basophils # (Auto) 0.01 06/06/17 18:10 Test 06/06/17 18:10 06/06/17 18:20 White Blood Count 7.49 K/uL (4.8-10.8) Red Blood Count 4.35 M/uL (4.7-6.1) Hemoglobin 13.0 g/dL (14.0-18.0) Hematocrit 38.0 % (42-52) Mean Corpuscular Volume 87.4 fL (80-100) Mean Corpuscular Hemoglobin 29.9 pg (25-34) Mean Corpuscular Hemoglobin Concent 34.2 g/dl (32-36) Platelet Count 147 K/uL (130-400) Mean Platelet Volume 9.0 fL (7.4-10.4) Neutrophils (%) (Auto) 71.5 % Lymphocytes (%) (Auto) 16.8 % Monocytes (%) (Auto) 10.5 % Eosinophils (%) (Auto) 0.8 % Basophils (%) (Auto) 0.1 % Neutrophils # (Auto) 5.35 K/uL (1.4-6.5) Lymphocytes # (Auto) 1.26 K/uL (1.2-3.4) Monocytes # (Auto) 0.79 K/uL (0.11-0.59) Eosinophils # (Auto) 0.06 K/uL (0-0.5) Basophils # (Auto) 0.01 K/uL (0-0.2) RDW Standard Deviation 43.5 fL (36.4-46.3) RDW Coefficient of Variation 13.6 % (11.5-14.5) Immature Granulocyte % (Auto) 0.3 % Immature Granulocyte # (Auto) 0.02 K/uL (0.00-0.02) Venous Blood pH 7.43 (7.36-7.41) Venous Blood Partial Pressure CO2 39 mmHg (38.0-50.0) Venous Blood Partial Pressure O2 42 mmHg Venous Blood HCO3 25 mmol/L Venous Blood Oxygen Saturation 77.1 % Venous Blood Base Excess 1.0 mEq/L Anion Gap 8.0 mmol/L (3-11) Est Creatinine Clear Calc Drug Dose 51.0 ml/min Estimated GFR () 58.1 Estimated GFR (Non- 50.1 BUN/Creatinine Ratio 13.8 (10-20) Calcium Level 8.4 mg/dl (8.5-10.1) Total Bilirubin 0.9 mg/dl (0.2-1) Direct Bilirubin 0.2 mg/dl (0-0.2) Aspartate Amino Transf (AST/SGOT) 15 U/L (15-37) Alanine Aminotransferase (ALT/SGPT) 17 U/L (12-78) Alkaline Phosphatase 112 U/L (45-117) Troponin I < 0.015 ng/ml (0-0.045) Pro-B-Type Natriuretic Peptide 336 pg/ml (0-1800) Total Protein 6.9 gm/dl (6.4-8.2) Albumin 3.5 gm/dl (3.4-5.0) Lipase 51 U/L (73-393) Influenza Type A (RT-PCR) Neg for Influ A (NEG) Influenza Type B (RT-PCR) Neg for Influ B (NEG) Laboratory results reviewed by me Medications Administered Medications (Trade) Dose Ordered Sig/Madison Route Start Time Stop Time Status Last Admin Dose Admin Sodium Chloride 500 ml @ 999 mls/hr Q31M STAT IV 06/06/17 17:47 06/06/17 18:17 DC 06/06/17 18:18 999 MLS/HR Albuterol/ Ipratropium (Duoneb) 12 ml ONE ONCE INH 06/06/17 18:00 06/06/17 18:01 DC 06/06/17 18:26 12 ML Dexamethasone Sodium Phosphate (Decadron Inj) 10 mg NOW STAT IV 06/06/17 17:47 06/06/17 17:50 DC 06/06/17 18:18 10 MG Sodium Chloride 500 ml @ 999 mls/hr Q31M STAT IV 06/06/17 19:44 06/06/17 20:14 DC 06/06/17 20:21 999 MLS/HR Azithromycin (Zithromax Tab) 500 mg NOW STAT PO 06/06/17 20:14 06/06/17 20:15 DC 06/06/17 21:07 500 MG Albuterol (Ventolin Hfa Inhaler) 2 puffs NOW STAT INH 06/06/17 20:14 06/06/17 20:15 DC 06/06/17 21:07 2 PUFFS ECG Per My Interpretation Indication: SOB/dyspnea Rate (beats per minute): 86 Rhythm: normal sinus Findings: no acute ischemic change, other (normal axis) ED Course 1741: The patient was evaluated in room B10. A complete history and physical exam was performed. 2006: I reevaluated the patient. Discussed results and discharge instructions: he verbalized understanding and agreement. The patient is ready for discharge after he receives another 500cc of fluid. Medical Decision I reviewed the patient's past medical history, medications, and the nursing notes as described above. Differential diagnosis: Etiologies such as infections, reactive airway disease, pneumonia, pneumothorax , COPD, CHF, cardiac ischemia, pulmonary embolism, musculoskeletal, gastrointestinal, as well as others were entertained. The patient is an 82-year-old gentleman with a past medical history of lung cancer status post resection who presents to the emergency department with cough congestion shortness of breath per hpi. The patient is in no acute distress, afebrile stable vital signs. On exam, the patient has scattered wheezes and rhonchi. However, 95% on room air. Chest x-ray negative for pneumonia. EKG unremarkable. WBC within normal limits. Influenza negative. Labs otherwise unremarkable. Patient feeling significantly improved after IV fluid hydration, steroids and continuous DuoNeb. Given the patient's symptoms in the setting of his history of lung cancer will treat the patient for bronchitis with azithromycin as well. Findings and plan for follow-up reviewed with patient. Patient agreeable and d/c'd per discharge instructions. Medication Reconcilliation Current Medication List: was personally reviewed by me Blood Pressure Screening Patient's blood pressure: Normal blood pressure Blood pressure disposition: Did not require urgent referral Impression Primary Impression: Bronchitis Scribe Attestation The scribe's documentation has been prepared under my direction and personally reviewed by me in its entirety. I confirm that the note above accurately reflects all work, treatment, procedures, and medical decision making performed by me. Departure Information Dispostion Home / Self-Care Prescriptions Azithromycin (Zithromax) 250 Mg Tab 250 MG PO DAILY, #4 TAB Prov: Michi Brar M.D. 06/06/17 Prednisone (Prednisone) 20 Mg Tab 3 TAB PO DAILY for 4 Days, #12 TAB FOR 4 DAYS Prov: Michi Brar M.D. 06/06/17 Referrals Jose C Can M.D. (PCP) Forms HOME CARE DOCUMENTATION FORM, IMPORTANT VISIT INFORMATION, WORK / SCHOOL INSTRUCTIONS Patient Instructions ED Bronchitis Asthmatic, My [facility] Additional Instructions Please follow up with your primary care physician in the next 1-3 days for re- evaluation. You likely have a bronchitis. Otherwise, your exam, EKG, chest xray, and lab results did not show signs of an emergent condition at this time. Prednisone and Azithromycin as directed. Use your albuterol inhaler 2 puffs every 4 hours for the next 48 hours and then as needed thereafter. Acetaminophen or ibuprofen for pain and fevers as needed. Drink plenty of fluids to ensure hydration. Return to the emergency department for worsening symptoms as described in the accompanying instructions.
[2017-06-06] MEDS ORDERED: ALBUT/IPRATROP 3MG/0.5MG NEB 3 ML VIAL INH ONE (18:00)
[2017-06-06 18:21] LABS: BASO % 0.1 %; BASO ABS # 0.01 K/uL (0-0.2); EOS % 0.8 %; EOS ABS # 0.06 K/uL (0-0.5); IG# 0.02 K/uL (0.00-0.02); LYMPH % 16.8 %; LYMPH ABS # 1.26 K/uL (1.2-3.4); MEAN CELL VOLUME 87.4 fL (80-100); MEAN CORPUSCULAR HEMOGLOBIN 29.9 pg (25-34); MEAN CORPUSCULAR HGB CONC 34.2 g/dl (32-36); MONO % 10.5 %; MONO ABS # 0.79 K/uL (0.11-0.59); NEUT % 71.5 %; NEUT ABS # 5.35 K/uL (1.4-6.5); PLATELET COUNT 147 K/uL (130-400); RED CELL DISTRIBUTION WIDTH CV 13.6 % (11.5-14.5); RED CELL DISTRIBUTION WIDTH SD 43.5 fL (36.4-46.3); WHITE BLOOD COUNT 7.49 K/uL (4.8-10.8)
--- NOTE | 2017-06-06 18:24 | DIAGNOSTIC IMAGING REPORT ---
SINGLE VIEW CHEST CLINICAL HISTORY: Atypical chest pain. FINDINGS: An AP, portable, upright chest radiograph is compared to study dated 09/14/2016 and correlated with chest CT dated 01/21/2017. The examination is degraded by portable technique, motion artifact, and patient rotation. The heart is enlarged and there is atherosclerotic calcification of the thoracic aorta. Emphysema and chronic interstitial thickening are similar to previous. Again seen are postoperative changes and volume loss from right upper lobe resection. Suture material is seen overlying the right hilum. There is no airspace consolidation or large pleural effusion. No pneumothorax is identified. The skeletal structures are osteopenic. Degenerative change and scoliosis are noted in the thoracic spine. There are healed left-sided rib fractures. IMPRESSION: 1. Cardiomegaly, emphysema, and postoperative change from right-sided pulmonary resection. 2. No acute cardiopulmonary abnormality is seen. Electronically signed by: José Luis Dyer M.D. 06/06/2017 6:23 PM Dictated Date/Time: 06/06/2017 6:21 PM
[2017-06-06 18:27] VITALS: PULSE 77; O2SAT 97
[2017-06-06 18:38] LABS: ALBUMIN 3.5 gm/dl (3.4-5.0); ALT/SGPT 17 U/L (12-78); BLOOD UREA NITROGEN 18 mg/dl (7-18); CALCIUM 8.4 mg/dl (8.5-10.1); CARBON DIOXIDE 27 mmol/L (21-32); GLUCOSE 113 mg/dl (70-99); LIPASE 51 U/L (73-393); POTASSIUM 4.3 mmol/L (3.5-5.1); SODIUM 134 mmol/L (136-145)
[2017-06-06 18:43] LABS: ALKALINE PHOSPHATASE 112 U/L (45-117); AST/SGOT 15 U/L (15-37); TOTAL PROTEIN 6.9 gm/dl (6.4-8.2)
[2017-06-06 19:23] LABS: INFLUENZA A PCR Neg for Influ A (NEG); INFLUENZA B PCR Neg for Influ B (NEG)
[2017-06-06] MEDS ORDERED: AZITHROMYCIN 250 MG TAB PO STA (20:14)
[2017-06-06] MEDS ORDERED: ALBUTEROL HFA 8 GM INHALER INH STA (20:14)
[2017-06-06] MEDS ORDERED: PRED20TA PO (20:21)
[2017-06-06] MEDS ORDERED: AZIT250T PO (20:21)
[2017-06-06 21:45] VITALS: BP 112/68; PULSE 103; O2SAT 95
== END 2017-06-06 21:50 | disposition home or self-care (01) ==
LOC: C.EDB 17:30
DX: J40 Bronchitis, not specified as acute or chronic (principal); I10 Essential (primary) hypertension; E78.00 Pure hypercholesterolemia, unspecified; Z79.82 Long term (current) use of aspirin; Z90.2 Acquired absence of lung [part of]; Z85.118 Personal history of other malignant neoplasm of bronchus and lung; Z87.891 Personal history of nicotine dependence